=== PATIENT | female | born 1955 | race Caucasian/White ===

== ENCOUNTER 2016-04-19 04:48 | Emergency (ER) | payer OTHER ==
[~2016-04-19] VITALS: Ht 165.1 cm; Wt 75.0 kg
[~2016-04-19 04:48] MED LIST: ADV25050 INHALATION; ATOR10TA65 PO; CARI350T29 PO; CLOB15OI15 TOP; CLON0.5T4 PO; DIVA250T4 PO; DOCU250C58 PO; GABA300C16 PO; IBUP800T25 PO; KENC1 TOP; LEVO125T71 PO; METH10TA2 PO; NIT4 SL; OXYB5TAB7 PO; OXYC-183 PO; QUET50TA22 PO; RIVA20TA PO; VILA20TA PO
[2016-04-19 04:57] VITALS: Ht 165.1 cm; Wt 75.0 kg
[2016-04-19] MEDS ORDERED: SOD CHLORIDE 0.9% 1,000 ML IV STA (05:04)
[2016-04-19] MEDS ORDERED: ONDANSETRON 4 MG INJ IV STA ×2 (05:04→06:31)
[2016-04-19] MEDS ORDERED: DICLOFENAC SODIUM 37.5 MG/ML VIAL IV STA (05:04)
[2016-04-19 05:45] LABS: BASOPHILS % 0.2 % (0.0-2.0); HEMOGLOBIN 16.6 g/dl (12.0-16.0); LYMPHOCYTES # 1.2 10^3/ul (0.8-2.9); LYMPHOCYTES % 8.7 % (15.0-51.0); MEAN CORPUSCULAR HEMOGLOBIN 32.2 pg (29.0-33.0); MEAN CORPUSCULAR VOLUME 94.7 fl (82.0-101.0); MEAN PLATELET VOLUME 8.3 fl (7.4-10.4); MONOCYTE # 0.6 10^3/ul (0.3-0.9); MONOCYTES % 4.4 % (0.0-11.0); NEUTROPHILS % 86.7 % (39.0-77.0); PLATELET COUNT 290 10^3/UL (140-440); RED BLOOD COUNT 5.17 10^6/ul (4.20-5.40); RED CELL DISTRIBUTION WIDTH 14.6 % (11.5-14.5); UNCORRECTED WBC 13.9 10^3/ul (4.8-10.8); WHITE BLOOD COUNT 13.9 10^3/ul (4.8-10.8)
[2016-04-19 05:48] LABS: ALBUMIN 4.3 g/dl (3.3-4.9)
[2016-04-19 05:49] LABS: POTASSIUM 3.9 mmol/L (3.5-5.1)
[2016-04-19 05:50] LABS: CONDITION 1; LH ANALYZER COMMENTS 1
[2016-04-19 05:51] LABS: ALBUMIN/GLOBULIN RATIO 1.3; BILIRUBIN,INDIRECT 0.4 mg/dl (0-1.1); BILIRUBIN,TOTAL 0.4 mg/dl (0.2-1.3); CREATININE 0.73 mg/dl (0.44-1.00); TOTAL PROTEIN 7.6 g/dl (6.1-8.1)
[2016-04-19 05:52] LABS: CALCIUM 9.8 mg/dl (8.4-10.2)
[2016-04-19] MEDS ORDERED: HYDROmorphONE 1 MG/ML SYG IV STA (06:31)
[2016-04-19 07:06] LABS: ADD UMIC NO; URINE BILIRUBIN (Dip) NEGATIVE (NEGATIVE); URINE BLOOD (Dip) NEGATIVE (NEGATIVE); URINE COLOR LT. YELLOW (YELLOW); URINE GLUCOSE (Dip) NEGATIVE (NEGATIVE); URINE KETONES (Dip) 15 (NEGATIVE); URINE LEUKOCYTE ESTERASE (Dip) NEGATIVE (NEGATIVE); URINE NITRITE (Dip) NEGATIVE (NEGATIVE); URINE TOTAL PROTEIN (Dip) NEGATIVE (NEGATIVE); URINE UROBILINOGEN (Dip) 0.2 E.U./dL (0.1-1.0)
--- NOTE | 2016-04-19 07:16 | RADRPT ---
PROCEDURE: CT Abdomen and Pelvis without contrast. CLINICAL INDICATION: Right lower quadrant pain. TECHNIQUE: Routine axial tomographic images of the abdomen and pelvis were obtained from the domes the diaphragm to the symphysis pubis. The patient was scanned withoutoral or intravenous contrast. Coronal and sagittal reformatted images were obtained from the axial source images. Images were re viewed on a high-resolution PACS workstation. The total exam CTDI equals 20.77 mGy and the total exa m DLP equals 1209.85 mGy-cm. One or more of the following dose reduction techniques were used: Aut omated exposure control, adjustment of the mA and / or kV according to patient size, or use of itera tive reconstruction technique. COMPARISON: CT abdomen and pelvis dated 10/24/2015 FINDINGS: The visualized portions of the lung bases demonstrate scarring versus atelectasis of the right mid l tanvi. Evaluation of the intra-abdominal solid organs is limited on this noncontrast examination. The liver appears normal in size. There is no intra or extrahepatic biliary dilatation. The gallbl adder is unremarkable by CT criteria. The spleen, pancreas, and left adrenal gland are unremarkable . There is a 2 cm right adrenal gland nodule measuring 3 HU. The kidneys are symmetric in size. No renal, ureteral, or bladder calculi are identified. No perine phric inflammatory changes are identified. The urinary bladder is grossly unremarkable. An IVC kerry ter is in place. There is mild mucosal thickening of the distal esophagus. The bowel demonstrates normal course and caliber. There is no evidence of bowel obstruction. The appendix is unremarkable. The uterus and adnexa are grossly unremarkable. No intraperitoneal free fluid, free air or abscess is identified. The aorta is normal in caliber. No retroperitoneal, mesenteric, or inguinal lymphadenopathy is iden tified. The osseous structures demonstrate a moderate compression fracture of the superior endplate of the L 1 vertebral body and mild compression fracture of the superior endplate of the L3 vertebral body. T here are degenerative changes of the spine with multilevel facet arthropathy. There is intervertebr al disk space narrowing L5-S1 with discogenic endplate changes and vacuum disk phenomenon. There ar e numerous surgical clips along the anterior chest and abdominal wall. IMPRESSION: 1. Limited, noncontrast CT of the abdomen and pelvis. No acute intra-abdominal abnormality identifi ed. No significant interval change. 2. Mild mucosal thickening of the distal esophagus. 3. Right adrenal gland adenoma measuring 2 cm in diameter. 4. IVC filter in place. 5. Stable compression deformities of the L1 and L3 vertebral bodies. 6. Degenerative changes of the spine. 7. Numerous surgical clips along the anterior chest and abdominal wall. RPTAT: HH .Meg Cam MD, MD Date Time Electronically viewed and signed by .Meg Cam MD, on 04/19/2016 07:15 .G/
[2016-04-19 08:00] VITALS: BP 127/65; PULSE 72; RESP 19; TEMP 98.2
--- NOTE | 2016-04-19 08:56 | ERD ---
ER Documentation Chief Complaint Date/Time DATE: 04/19/16 TIME: 08:54 Chief Complaint ABD and back pain with n/v for 3 days HPI Patient is a 61-year-old female with chronic back pain who presents with abdominal pain and back pain. The patient was brought in by ambulance. She came from [facility]. The patient has right lower quadrant abdominal pain which is constant and sharp in nature. She says that she cannot pee and that she feels "dehydrated". She usually takes [place] but has not taken any today. Upon review of old medical records she has had multiple visits for pain complaints. She does have a primary doctor and says that she has a pain management appointment scheduled for 11 AM. ROS All systems reviewed and are negative except as per history of present illness. Medications Home Meds Active Scripts Ibuprofen* (Motrin*) 800 Mg Tab, 800 MG PO Q6H Y for PAIN AND OR ELEVATED TEMP, #30 TAB Prov:VALDEMAR PAGENIKITA DO 03/03/16 Reported Medications Gabapentin* (Gabapentin*) 300 Mg Capsule, 300 MG PO QHS, #30 CAP 03/03/16 Divalproex Sodium* (Divalproex Sodium*) 250 Mg Tablet.dr, 250 MG PO TID, #90 TAB 03/03/16 Clonazepam* (Clonazepam*) 0.5 Mg Tablet, 0.5 MG PO BID, TAB 03/03/16 Oxybutynin Chloride* (Ditropan*) 5 Mg Tab, 5 MG PO DAILY, TAB 03/03/16 Quetiapine Fumarate* (Quetiapine Fumarate*) 50 Mg Tablet, 50 MG PO BID, TAB 03/03/16 Nitroglycerin* (Nitrostat*) 0.4 Mg Tab.subl, 0.4 MG SL Q5MIN Y for CHEST PAIN, BOTTLE 03/03/16 Clobetasol Propionate* (Clobetasol Propionate*) 15 Gm Oint, 1 APPLIC TOP BID, # 1 TUB 03/03/16 Carisoprodol* (Carisoprodol*) 350 Mg Tablet, 350 MG PO TID Y for PRN, TAB 03/03/16 Docusate Sodium* (Colace*) 250 Mg Capsule, 250 MG PO BID, #60 CAP 03/03/16 Vilazodone Hcl (Viibryd) 20 Mg Tablet, 20 MG PO DAILY, TAB 03/03/16 Triamcinolone Acetonide* (Kenalog*) 0.1%-15GM Cr, 1 APPLIC TOP TID, #1 TUB 10/24/15 Rivaroxaban* (Xarelto*) 20 Mg Tablet, 20 MG PO WITH DINNER, TAB 10/24/15 Salmeterol Xinaf/Fluticasone* (Advair*) 250-50 Diskus Inhaler, 1 INH INHALATION BID, #1 INHALER 10/24/15 Methadone Hcl* (Methadone*) 10 Mg Tab, 20 MG PO BID, TAB 08/25/15 Oxycodone Hcl-Acetaminophen* (Oxycodone Hcl-Acetaminophen*) 10-325 Mg Tablet, 1 TAB PO Q6 Y for PAIN, TAB 04/09/15 Atorvastatin Calcium (Atorvastatin Calcium) 10 Mg Tablet, 10 MG PO QHS, #30 TAB 04/09/15 Levothyroxine Sodium* (Levoxyl*) 125 Mcg Tablet, 125 MCG PO BEFORE BREAKFAST, # 30 TAB 04/09/15 Allergies Allergies: Coded Allergies: morphine (Verified Allergy, Intermediate, "I DON'T REMEMBER", 03/03/16) Penicillins (Verified Allergy, Unknown, 03/03/16) prochlorperazine edisylate (Verified Allergy, Unknown, 03/03/16) prochlorperazine maleate (Verified Allergy, Unknown, 03/03/16) PMhx/Soc History of Surgery: Yes (DVT IVC FILTER 08/2015, BREST CA W/ BILAT MASTECTOMY, RT CARPAL TUNNEL SX.) Anesthesia Reaction: No Hx Neurological Disorder: No Hx Respiratory Disorders: Yes (PUL EMBOLISM) Hx Cardiac Disorders: No Hx Psychiatric Problems: Yes (BIPOLAR) Hx Miscellaneous Medical Probl: Yes (DVT IVC FILTER 08/2015, BREST CA W/ BILAT MASTECTOMY, RT CARPAL TUNNEL SX.) Hx Alcohol Use: No Hx Substance Use: No Hx Tobacco Use: Yes Smoking Status: Current every day smoker FmHx Family History: No diabetes Physical Exam Vitals Vital Signs Date Time Temp Pulse Resp B/P Pulse Ox O2 Delivery O2 Flow Rate FiO2 04/19/16 08:00 98.2 72 19 127/65 100 Room Air 04/19/16 06:02 99.5 94 18 155/100 100 Nasal Cannula 2.0 04/19/16 04:57 100.2 87 18 166/91 91 Physical Exam Const: Moderate distress secondary to pain Head: Atraumatic Eyes: Normal Conjunctiva ENT: Normal External Ears, Nose and Mouth. Neck: Full range of motion..~ No meningismus. Resp: Clear to auscultation bilaterally Cardio: Regular rate and rhythm, no murmurs Abd: Soft, diffuse tenderness to palpation without rebound or guarding Skin: No petechiae or rashes Back: No midline or flank tenderness Ext: No cyanosis, or edema Neur: Awake and alert Psych: Normal Mood and Affect Result Diagram: 04/19/1650904/19/1610 Results 24 hrs Laboratory Tests Test 04/19/16 05:10 04/19/16 06:43 Alanine Aminotransferase (ALT/SGPT) 24IU/L Albumin 4.3g/dl Albumin/Globulin Ratio 1.30 Alkaline Phosphatase 123IU/L Anion Gap 19 Aspartate Amino Transf (AST/SGOT) 25IU/L Basophils # 0.010^3/ul Basophils % 0.2% Blood Morphology Comment Blood Urea Nitrogen 13mg/dl Calcium Level 9.8mg/dl Carbon Dioxide Level 27mmol/L Chloride Level 100mmol/L Creatinine 0.73mg/dl Direct Bilirubin 0.00mg/dl Eosinophils # 0.010^3/ul Eosinophils % 0.0% Globulin 3.30g/dl Glucose Level 122mg/dl Hematocrit 49.0% Hemoglobin 16.6g/dl Indirect Bilirubin 0.4mg/dl Lipase 23U/L Lymphocytes # 1.210^3/ul Lymphocytes % 8.7% Mean Corpuscular Hemoglobin 32.2pg Mean Corpuscular Hemoglobin Concent 34.0g/dl Mean Corpuscular Volume 94.7fl Mean Platelet Volume 8.3fl Monocytes # 0.610^3/ul Monocytes % 4.4% Neutrophils # 12.010^3/ul Neutrophils % 86.7% Nucleated Red Blood Cells # 0.010^3/ul Nucleated Red Blood Cells % 0.0/100WBC Platelet Count 38924^3/UL Potassium Level 3.9mmol/L Red Blood Count 5.1710^6/ul Red Cell Distribution Width 14.6% Sodium Level 142mmol/L Total Bilirubin 0.4mg/dl Total Protein 7.6g/dl White Blood Count 13.910^3/ul Urine Bilirubin NEGATIVE Urine Clarity CLEAR Urine Color LT. YELLOW Urine Glucose NEGATIVE% Urine Hemoglobin NEGATIVE Urine Ketones 15 Urine Leukocyte Esterase NEGATIVE Urine Nitrite NEGATIVE Urine Specific [place] 1.015 Urine Total Protein NEGATIVE Urine Urobilinogen 0.2 E.U./dL Urine pH 7.0 Current Medications Medications (Trade) Dose Ordered Sig/Daniel Route PRN Reason Start Time Stop Time Status Last Admin Dose Admin Sodium Chloride (NS) 1,000 ml @ 1,000 mls/hr Q1H STAT IV 04/19/16 05:04 04/19/16 06:03 DC 04/19/16 05:21 Ondansetron HCl (Zofran Inj) 4 mg ONCE STAT IV 04/19/16 05:04 04/19/16 05:06 DC 04/19/16 05:21 Diclofenac Sodium (Dyloject) 37.5 mg ONCE STAT IV 04/19/16 05:04 04/19/16 05:06 DC 04/19/16 05:21 Hydromorphone HCl (Dilaudid) 1 mg ONCE STAT IV 04/19/16 06:31 04/19/16 06:32 DC 04/19/16 06:45 Ondansetron HCl (Zofran Inj) 4 mg ONCE STAT IV 04/19/16 06:31 04/19/16 06:33 DC 04/19/16 06:46 Procedures/MDM CT scan shows no acute process per radiology. Smoking Cessation Therapy: Pt. was lectured for greater than 3 minutes on the health risks of continued smoking and the benefits of cessation. Patient is a 61-year-old female presents with acute on chronic pain. At this point I see no signs of serious bacterial infection. I doubt appendicitis, cholecystitis, pancreatitis, or bowel obstruction. Laboratory studies show a mildly elevated white blood cell count but otherwise are normal. There is no sign of urine infection. The patient feels better after Dilaudid and Zofran. She has a pain management appointment scheduled for 11 AM and she wants to get to this appointment and I told her she should keep the appointment. She will be discharged in good return for any worsening symptoms. I do not believe she requires admission to the hospital at this time. She was given copies of her laboratory studies and CT scan result prior to discharge. Departure Diagnosis: Primary Impression: Abdominal pain Abdominal location: generalized Qualified Code: R10.84 - Generalized abdominal pain Additional Impression: Chronic back pain Back pain location: low back pain Back pain laterality: bilateral Sciatica presence: without sciatica Qualified Code: M54.5 - Chronic bilateral low back pain without sciatica Condition: Fair Patient Instructions: Abdominal Pain Referrals: ZULMA KRUEGER (PCP) Additional Instructions: Keep the appointment with your pain management doctor scheduled for today. LIT YUNG MD Apr 19, 2016 08:56
== END 2016-04-19 08:09 | disposition home or self-care (01) ==
LOC: E/R 04:48
DX: R10.84 Generalized abdominal pain (principal); M54.5 Low back pain; F17.210 Nicotine dependence, cigarettes, uncomplicated; E03.9 Hypothyroidism, unspecified; Z85.3 Personal history of malignant neoplasm of breast
CPT/HCPCS: 36415; 74176; 80053; 81003; 83690; 85025; 87086; 96374; 96375; 96376; 99285; J1170; J2405; J7030

== ENCOUNTER 2016-06-30 21:55 | Inpatient (IN) | payer OTHER ==
[~2016-06-30] VITALS: Ht 160 cm; Wt 88.7 kg
[2016-06-30] MEDS ORDERED: LORAZEPAM 2 MG INJ IV ONE ×4 (22:00→23:30)
[2016-06-30] MEDS ORDERED: MUPI15CR9 TOP (22:14)
[2016-06-30] MEDS ORDERED: ATOR40TA68 PO (22:16)
[2016-06-30] MEDS ORDERED: FLUT1AER INHALATION (22:18)
[2016-06-30] MEDS ORDERED: DULO20CA17 PO (22:19)
--- NOTE | 2016-06-30 22:20 | ERD ---
ER Documentation Chief Complaint Date/Time DATE: 06/30/16 TIME: 22:16 Chief Complaint HPI 61-year-old female who presents from assisted living facility after taking an extra dose of pain medication. The patient was found somnolent, pinpoint pupils. She was given Narcan, she is now more awake arousable and agitated. Based on senior living report to EMS it appears the patient got her regularly scheduled evening medications that include multiple pain medications and opiates. 1 of these does include methadone. The patient then asked for a second dose of pain medication. She was found to be sluggish and responded to Narcan as documented above. The patient is agitated, very limited history upon arrival. No reported fever, fall, trauma, recent altered mental status. ROS Agitated Medications Home Meds Active Scripts Ibuprofen* (Motrin*) 800 Mg Tab, 800 MG PO Q6H Y for PAIN AND OR ELEVATED TEMP, #30 TAB Prov:VALDEMAR PAGENIKITA LOCKE 03/03/16 Reported Medications Mirtazapine* (Mirtazapine*) 30 Mg Tablet, 30 MG PO HS, TAB 06/30/16 Levothyroxine Sodium* (Levothyroxine Sodium*) 137 Mcg Tablet, 137 MCG PO BEFORE BREAKFAST, #30 TAB 06/30/16 Lactulose* (Lactulose*) 10 Gm/15 Ml Solution, 2 TAB.SL PO QHS, ML 06/30/16 Quetiapine Fumarate* (Quetiapine Fumarate*) 400 Mg Tablet, 400 MG PO HS, TAB 06/30/16 Quetiapine Fumarate* (Quetiapine Fumarate*) 100 Mg Tablet, 100 MG PO QAM, TAB 06/30/16 Duloxetine Hcl* (Duloxetine Hcl*) 20 Mg Capsule.dr, 20 MG PO DAILY, #30 CAP 06/30/16 Fluticasone-Vilanterol (Breo Ellipta Inhaler) 100-25 Mcg/Actuation Aer.pow.ba, 1 PUFF INHALATION DAILY, #1 INHALER 06/30/16 Atorvastatin* (Atorvastatin*) 40 Mg Tablet, 40 MG PO DAILY, #30 TAB 06/30/16 Mupirocin Calcium* (Mupirocin*) 2% - 15 Gram Cream..g., 1 APPLIC TOP BID, #1 TUB 06/30/16 Gabapentin* (Gabapentin*) 300 Mg Capsule, 300 MG PO QHS, #30 CAP 03/03/16 Divalproex Sodium* (Divalproex Sodium*) 250 Mg Tablet.dr, 250 MG PO TID, #90 TAB 03/03/16 Clonazepam* (Clonazepam*) 0.5 Mg Tablet, 0.5 MG PO BID, TAB 03/03/16 Oxybutynin Chloride* (Ditropan*) 5 Mg Tab, 5 MG PO DAILY, TAB 03/03/16 Quetiapine Fumarate* (Quetiapine Fumarate*) 50 Mg Tablet, 50 MG PO BID for PRN, TAB 03/03/16 Nitroglycerin* (Nitrostat*) 0.4 Mg Tab.subl, 0.4 MG SL Q5MIN Y for CHEST PAIN, BOTTLE 03/03/16 Clobetasol Propionate* (Clobetasol Propionate*) 15 Gm Oint, 1 APPLIC TOP BID, # 1 TUB 03/03/16 Carisoprodol* (Carisoprodol*) 350 Mg Tablet, 350 MG PO TID Y for PRN, TAB 03/03/16 Docusate Sodium* (Colace*) 250 Mg Capsule, 250 MG PO BID, #60 CAP 03/03/16 Rivaroxaban* (Xarelto*) 20 Mg Tablet, 20 MG PO WITH MEALS, TAB 10/24/15 Methadone Hcl* (Methadone*) 10 Mg Tab, 20 MG PO BID, TAB 08/25/15 Oxycodone Hcl-Acetaminophen* (Oxycodone Hcl-Acetaminophen*) 10-325 Mg Tablet, 1 TAB PO Q6 Y for PAIN, TAB 04/09/15 Discontinued Reported Medications Vilazodone Hcl (Viibryd) 20 Mg Tablet, 20 MG PO DAILY, TAB 03/03/16 Triamcinolone Acetonide* (Kenalog*) 0.1%-15GM Cr, 1 APPLIC TOP TID, #1 TUB 10/24/15 Salmeterol Xinaf/Fluticasone* (Advair*) 250-50 Diskus Inhaler, 1 INH INHALATION BID, #1 INHALER 10/24/15 Atorvastatin Calcium (Atorvastatin Calcium) 10 Mg Tablet, 10 MG PO QHS, #30 TAB 04/09/15 Levothyroxine Sodium* (Levoxyl*) 125 Mcg Tablet, 125 MCG PO BEFORE BREAKFAST, # 30 TAB 04/09/15 Allergies Allergies: Coded Allergies: morphine (Verified Allergy, Intermediate, "I DON'T REMEMBER", 06/30/16) Penicillins (Verified Allergy, Unknown, 06/30/16) prochlorperazine edisylate (Verified Allergy, Unknown, 06/30/16) prochlorperazine maleate (Verified Allergy, Unknown, 06/30/16) PMhx/Soc History of Surgery: Yes (DVT IVC FILTER 08/2015, BREST CA W/ BILAT MASTECTOMY, RT CARPAL TUNNEL SX.) Anesthesia Reaction: No Hx Neurological Disorder: No Hx Respiratory Disorders: Yes (PUL EMBOLISM) Hx Cardiac Disorders: No Hx Psychiatric Problems: Yes (BIPOLAR) Hx Miscellaneous Medical Probl: Yes (DVT IVC FILTER 08/2015, BREST CA W/ BILAT MASTECTOMY, RT CARPAL TUNNEL SX.) Hx Alcohol Use: No Hx Substance Use: No Hx Tobacco Use: Yes FmHx Family History: No diabetes Physical Exam Vitals Vital Signs Date Time Temp Pulse Resp B/P Pulse Ox O2 Delivery O2 Flow Rate FiO2 07/01/16 00:00 97.9 104 23 124/60 89 06/30/16 23:45 129 23 173/85 99 06/30/16 23:30 132 26 165/107 99 06/30/16 23:15 138 26 204/182 99 06/30/16 23:00 98.3 135 27 190/165 98 06/30/16 22:02 98.3 139 33 97 Physical Exam General: Agitated, uncooperative Head: Normocephalic, atraumatic. Eyes: Pupils equally reactive, EOM intact ENT: Moist mucous membranes Neck: Supple, no lymphadenopathy Respiratory: Lungs clear bilaterally, no distress Cardiovascular: RRR, no murmurs, rubs, or gallops Abdominal: Soft, non-tender, non-distended, no peritoneal signs : Deferred MSK: No edema, no unilateral swelling, 5/5 strength Neurologic: Alert and oriented, moving all extremities, normal speech, no focal weakness, no cerebellar signs, hyperactive Skin: No rash Psych: Agitated mood Result Diagram: 06/30/16 1764 06/30/16 4355 Results 24 hrs Laboratory Tests Test 06/30/16 23:25 White Blood Count 11.410^3/ul Red Blood Count 4.4810^6/ul Hemoglobin 14.4g/dl Hematocrit 43.8% Mean Corpuscular Volume 97.8fl Mean Corpuscular Hemoglobin 32.1pg Mean Corpuscular Hemoglobin Concent 32.9g/dl Red Cell Distribution Width 13.7% Platelet Count 15769^3/UL Mean Platelet Volume 10.6fl Neutrophils % 61.9% Lymphocytes % 24.7% Monocytes % 10.0% Eosinophils % 2.1% Basophils % 0.5% Nucleated Red Blood Cells % 0.0/100WBC Neutrophils # 7.010^3/ul Lymphocytes # 2.810^3/ul Monocytes # 1.110^3/ul Eosinophils # 0.210^3/ul Basophils # 0.110^3/ul Nucleated Red Blood Cells # 0.010^3/ul Sodium Level 142mmol/L Potassium Level 3.9mmol/L Chloride Level 106mmol/L Carbon Dioxide Level 26mmol/L Anion Gap 14 Blood Urea Nitrogen 14mg/dl Creatinine 0.75mg/dl Glucose Level 115mg/dl Calcium Level 9.8mg/dl Current Medications Medications (Trade) Dose Ordered Sig/Daniel Route PRN Reason Start Time Stop Time Status Last Admin Dose Admin Lorazepam (Ativan) 1 mg ONCE ONCE IV 06/30/16 22:00 06/30/16 22:01 DC 06/30/16 22:06 Clonidine (Catapres) 0.1 mg ONCE ONCE PO 06/30/16 22:30 06/30/16 22:31 DC Lorazepam (Ativan) 1 mg ONCE ONCE IV 06/30/16 22:30 06/30/16 22:31 DC 06/30/16 22:26 Lorazepam (Ativan) 1 mg ONCE ONCE IV 06/30/16 23:00 06/30/16 23:01 DC 06/30/16 22:41 Lorazepam (Ativan) 1 mg ONCE ONCE IV 06/30/16 23:30 06/30/16 23:31 DC 06/30/16 23:30 Procedures/MDM Labs: No acute process MEDICAL DECISION MAKING: The patient presents with withdrawal syndrome secondary to likely Narcan administration in the setting of chronic opioid use. The patient most likely took an extra dose of her pain medication. The patient was found to be altered and received Narcan appropriately. The patient is now agitated. Her presentation is most consistent with likely opioid overdose now with withdrawal syndrome that is mild. The patient has no signs or symptoms concerning for alternative cause of altered mental status such as trauma, infection, intracranial hemorrhage. I do not believe the laboratory testing or diagnostic imaging is necessary at this point. The patient will be observed for a period of time given that she does take methadone but she did not receive an extra dose of methadone based on senior living report. ER COURSE: The patient was given 1 mg of Ativan. The patient did not have any response to this. She has not required a total of 4 mg of Ativan, clonidine for her opiate withdrawal. The patient is also required restraints given danger to herself that she is pulling out lines and pulling on equipment in the room. I will continue with benzodiazepine dosing to manage this patient's opiate withdrawal syndrome. The patient will likely require inpatient hospitalization for further management and close observation. Restrains: Indication: Medical given agitation Location: 4 point restraints to bilateral upper and lower extremities The patient was given verbal warnings that if the behavior continued the patient would require physical and/or chemical restraints. Despite verbal warnings the behavior continued and restraints were applied. The patient had a bedside reevaluation within 50 minutes of placement of restraints. Patient remained stable. I kept the patient and/or family informed of laboratory and diagnostic imaging results throughout the emergency room course. DISPOSITION PLAN: Admit to ICU given significant nursing care requirements and opiate withdrawal CONSULTATION: Accepting care team and consultations: I discussed the current laboratory data, diagnostic imaging and emergency care provided. Admitting team: Dr. Campuzano Admitting team indication: Insurance directed Departure Diagnosis: Primary Impression: Opioid overdose Encounter type: initial encounter Injury intent: accidental or unintentional Qualified Code: T40.2X1A - Opioid overdose, accidental or unintentional, initial encounter Additional Impression: Opioid dependence with withdrawal Condition: Stable ELSYE HOFFMANN MD Jun 30, 2016 22:20
[2016-06-30] MEDS ORDERED: QUET100T32 PO (22:21)
[2016-06-30] MEDS ORDERED: QUET400T11 PO (22:21)
[2016-06-30] MEDS ORDERED: LACT10SO5 PO (22:22)
[2016-06-30] MEDS ORDERED: LEVO137T3 PO (22:22)
[2016-06-30] MEDS ORDERED: MIRT30TA5 PO (22:23)
[2016-06-30 23:40] LABS: ADD SCAN DIFF NO; BASOPHIL # 0.1 10^3/ul (0.0-0.1); BASOPHILS % 0.5 % (0.0-2.0); EOSINOPHILS # 0.2 10^3/ul (0.0-0.5); EOSINOPHILS % 2.1 % (0.0-7.0); HEMATOCRIT 43.8 % (37.0-47.0); HEMOGLOBIN 14.4 g/dl (12.0-16.0); LYMPHOCYTES # 2.8 10^3/ul (0.8-2.9); LYMPHOCYTES % 24.7 % (15.0-51.0); MEAN CORPUSCULAR HEMOGLOBIN 32.1 pg (29.0-33.0); MEAN CORPUSCULAR HGB CONC 32.9 g/dl (32.0-37.0); MEAN CORPUSCULAR VOLUME 97.8 fl (82.0-101.0); MEAN PLATELET VOLUME 10.6 fl (7.4-10.4); MONOCYTE # 1.1 10^3/ul (0.3-0.9); NEUTROPHILS % 61.9 % (39.0-77.0); PLATELET COUNT 237 10^3/UL (140-415); RED BLOOD COUNT 4.48 10^6/ul (4.20-5.40); RED CELL DISTRIBUTION WIDTH 13.7 % (11.5-14.5); WHITE BLOOD COUNT 11.4 10^3/ul (4.8-10.8)
[2016-07-01] VITALS (18 sets, daily range): BP systolic 90–141; BP diastolic 48–80; PULSE 64–135; RESP 12–17; TEMP 97.6; Ht 160 cm; Wt 88.7 kg
[2016-07-01 00:02] LABS: CALCIUM 9.8 mg/dl (8.4-10.2); CREATININE 0.75 mg/dl (0.44-1.00); POTASSIUM 3.9 mmol/L (3.5-5.1)
[2016-07-01] MEDS ORDERED: ALBUTEROL/IPRATROPIUM (NEB) 3 ML AMP NEB SCH (01:00)
[2016-07-01] MEDS: DEXTROSE 5%-0.45% NACL 1,000 ML IV SCH ×3 (03:03→13:29)
--- NOTE | 2016-07-01 05:49 | HP ---
Date/Time of Note Date/Time of Note DATE: 07/01/16 TIME: 05:35 Assessment/Plan VTE Prophylaxis VTE Prophylaxis Intervention: SCD's Lines/Catheters IV [facility]ter [facility] Peripheral IV Urinary Cath still in place: Yes Assessment/Plan Assessment/Plan IMPRESSION 1. Benzo Overdose and withdrawal 2. Hx of Breast Ca s/p mastectomy 3. Anxiety, depression. 4. Posttraumatic stress disorder. 5. History of DVT and pulmonary embolism. 6. Possible hx of chronic obstructive pulmonary disease. 7. Hypothyroidism. 8. Dyslipidemia. 9. Mild Leukocytosis PLAN Admit to ICU Supportive care IV fluid Keep NPO. Resume home meds with adjustment when pt appropriate HPI/ROS Admit Date/Time Admit Date/Time Jul 01, 2016 at 00:32 Hx of Present Illness This is a 61-year-old female with a past medical history of pulmonary embolism diagnosed in 08/2015, lower extremity deep venous thrombosis also diagnosed at the same time, history of tobacco abuse, breast cancer status post bilateral mastectomies, constipation, chronic pain syndrome, chronic benzodiazepine dependence, chronic opioid dependence, possible post-traumatic stress disorder, bipolar disorder, hypothyroidism, Dyslipidemia, questionable COPD, prediabetes who was brought to ER for Benzo OD and withdrawal. [facility], where patient resides states that pt received regularly scheduled PM meds at 1900: Seroquel 400mg, Percocet 10/325, Remeron, Klonopin, and also received PRN seroquel 50mg at 2000. Upon EMS arrival, pt shallow respirations, pinpoint pupils, nonresponsive, given narcan and became wide awake, frequent constant movements and agitation displaying probable withdrawal symptoms. History as a result has been taken from chart review and ER. His vitals have been stable and labs show WBC of 11, otherwise CBC and BMP were WNL. . PMH/Family/Social Past Medical History Breast cancer s/p mastectomy Anxiety, depression. Posttraumatic stress disorder. History of DVT and pulmonary embolism. Possible chronic obstructive pulmonary disease. Chronic hypothyroidism. Chronic dyslipidemia. Past Surgical History Past Surgical Hx: other (mastectomy) Social History Alcohol Use: other (unknown) Smoking Status: Unknown if ever smoked Drug Use: other (benzo abuse) Exam/Review of Systems Vital Signs Vitals Vital Signs Date Time Temp Pulse Resp B/P Pulse Ox O2 Delivery O2 Flow Rate FiO2 07/01/16 03:55 Nasal Cannula 3.0 07/01/16 03:05 100 27 07/01/16 03:00 97.8 84 13 141/70 Intake and Output 06/30/16 06/30/16 07/01/16 15:00 23:00 07:00 Intake Total 100 ml Output Total 500 ml Balance -400 ml Exam Constitutional: other (restless and agitated) Head: atraumatic, normocephalic Respiratory: clear to auscultation Cardiovascular: nl pulses, regular rate and rhythm Gastrointestinal: other (+ bowel sound, non-distended), soft Extremities: normal pulses Labs Result Diagram: 06/30/16232406/30/162324 Medications Medications Current Medications Dextrose/Sodium Chloride (D5-1/2ns) 1,000 ml @ 100 mls/hr Q10H IV Last administered on 07/01/16 03:03; Admin Dose 100 MLS/HR; Start 07/01/16 at 00:25 Ondansetron HCl (Zofran Inj) 4 mg Q6H PRN IV NAUSEA AND/OR VOMITING; Start at 00:30 Famotidine (Pepcid Iv) 20 mg Q12 IV ; Start 07/01/16 at 09:00 ISIDRO YEUNG MD Jul 01, 2016 05:46
[2016-07-01] MEDS: ALBUTEROL/IPRATROPIUM (NEB) 3 ML AMP NEB SCH ×4 (05:53→21:00)
[2016-07-01 06:07] LABS: ADD SCAN DIFF NO
[2016-07-01 06:18] LABS: BASOPHIL # 0.1 10^3/ul (0.0-0.1); BASOPHILS % 0.5 % (0.0-2.0); EOSINOPHILS # 0.1 10^3/ul (0.0-0.5); EOSINOPHILS % 0.8 % (0.0-7.0); HEMATOCRIT 42.6 % (37.0-47.0); HEMOGLOBIN 13.9 g/dl (12.0-16.0); LYMPHOCYTES # 2.8 10^3/ul (0.8-2.9); LYMPHOCYTES % 23.2 % (15.0-51.0); MEAN CORPUSCULAR HEMOGLOBIN 32.6 pg (29.0-33.0); MEAN CORPUSCULAR HGB CONC 32.6 g/dl (32.0-37.0); MEAN CORPUSCULAR VOLUME 99.8 fl (82.0-101.0); MEAN PLATELET VOLUME 10.6 fl (7.4-10.4); MONOCYTE # 0.9 10^3/ul (0.3-0.9); MONOCYTES % 7.6 % (0.0-11.0); NEUTROPHIL # 8.1 10^3/ul (1.6-7.5); NEUTROPHILS % 67.3 % (39.0-77.0); PLATELET COUNT 228 10^3/UL (140-415); RED BLOOD COUNT 4.27 10^6/ul (4.20-5.40); RED CELL DISTRIBUTION WIDTH 13.7 % (11.5-14.5)
[2016-07-01 06:37] LABS: ALBUMIN 3.4 g/dl (3.3-4.9); ALBUMIN/GLOBULIN RATIO 1.3; CALCIUM 9.2 mg/dl (8.4-10.2); CREATININE 0.6 mg/dl (0.44-1.00); POTASSIUM 4.3 mmol/L (3.5-5.1)
[2016-07-01] MEDS: FAMOTIDINE 20 MG INJ IV SCH ×2 (09:44→21:59)
[2016-07-01 11:52] LABS: AADO2 Arterial 29.2 mmHg (7.0-24.0); Allen Test ACCEPTAB; Arterial Base Excess 1.4 mmol/L (-3.0-3); Arterial COHb 1.3 % (0.0-3.0); Arterial Fraction of Oxyhgb 90.6 % (93.0-99.0); Arterial HCO3 27.3 mmol/L (22.0-26.0); Arterial MetHb 0.3 % (0.0-1.5); Arterial Total Hemglobin 14.1 g/dl (12.0-18.0); MODE ROOM AIR
[2016-07-01] MEDS ORDERED: PANTOPRAZOLE 40 MG INJ IV SCH (14:30)
[2016-07-01 14:45] LABS: CHOL/HDL RATIO 4.3 RATIO
[2016-07-01] MEDS: DEXTROSE 5%-0.9% NACL 1,000 ML IV SCH (15:00)
[2016-07-01] MEDS ORDERED: PENDING SANTYL ORDER FOR WOUND CARE XX PRN (17:30)
[2016-07-02] MEDS: KETOROLAC 30 MG INJ IV PRN ×4 (00:08→22:38)
[2016-07-02] MEDS: ALBUTEROL/IPRATROPIUM (NEB) 3 ML AMP NEB SCH ×6 (01:36→20:27)
[2016-07-02] MEDS: DEXTROSE 5%-0.9% NACL 1,000 ML IV SCH ×2 (05:24→17:35)
[2016-07-02] MEDS: ONDANSETRON 4 MG INJ IV PRN ×2 (05:59→11:31)
[2016-07-02 08:00] VITALS: BP 151/87; PULSE 94; RESP 16
[2016-07-02] MEDS: FAMOTIDINE 20 MG INJ IV SCH ×2 (08:32→22:36)
[2016-07-02 08:48] LABS: ADD SCAN DIFF NO
[2016-07-02 08:52] LABS: BASOPHIL # 0.1 10^3/ul (0.0-0.1); BASOPHILS % 0.7 % (0.0-2.0); EOSINOPHILS # 0.1 10^3/ul (0.0-0.5); EOSINOPHILS % 1.6 % (0.0-7.0); HEMATOCRIT 40.8 % (37.0-47.0); HEMOGLOBIN 13.8 g/dl (12.0-16.0); MEAN CORPUSCULAR HEMOGLOBIN 33.1 pg (29.0-33.0); MEAN CORPUSCULAR HGB CONC 33.8 g/dl (32.0-37.0); MEAN CORPUSCULAR VOLUME 97.8 fl (82.0-101.0); MEAN PLATELET VOLUME 10.8 fl (7.4-10.4); MONOCYTE # 0.6 10^3/ul (0.3-0.9); MONOCYTES % 7.4 % (0.0-11.0); NEUTROPHIL # 4.7 10^3/ul (1.6-7.5); PLATELET COUNT 235 10^3/UL (140-415); RED BLOOD COUNT 4.17 10^6/ul (4.20-5.40); RED CELL DISTRIBUTION WIDTH 13.6 % (11.5-14.5); WHITE BLOOD COUNT 7.5 10^3/ul (4.8-10.8)
[2016-07-02 09:12] LABS: CREATININE 0.68 mg/dl (0.44-1.00); MAGNESIUM 1.9 mg/dl (1.7-2.5); PHOSPHORUS 2.8 mg/dl (2.5-4.9); POTASSIUM 3.6 mmol/L (3.5-5.1)
[2016-07-02 16:44] LABS: THYROID STIMULATING HORMONE 8.44 MIU/L (0.465-4.680)
[2016-07-02] MEDS: RIVAROXABAN 20 MG TABLET PO SCH (17:37)
[2016-07-02 19:32] VITALS: BP 137/81; RESP 18
[2016-07-03] MEDS: ALBUTEROL/IPRATROPIUM (NEB) 3 ML AMP NEB SCH ×5 (01:00→16:51)
[2016-07-03] MEDS: DEXTROSE 5%-0.9% NACL 1,000 ML IV SCH (05:55)
--- NOTE | 2016-07-03 06:47 | PN ---
DATE: 07/02/2016 SUBJECTIVE: The patient more alert and awake now, asking when she can go home. Gets emotionally la bile at times but otherwise alert. Denies pain. OBJECTIVE VITAL SIGNS: Stable. GENERAL: The patient is lying in bed, answering questions appropriately, alert and oriented x3, in mild distress but answering questions. HEENT: Pupils equal, round, react to light. Extraocular muscles intact. NECK: Supple, no thyromegaly. LUNGS: Clear to auscultation bilaterally. CARDIOVASCULAR: S1, S2 heard. No rubs or gallops. ABDOMEN: Soft, nontender, nondistended. Normal bowel sounds. No rebound or guarding. MUSCULOSKELETAL: No lower extremity edema bilaterally. NEUROLOGIC: No focal deficits. LABORATORY DATA: CBC is normal. Basic metabolic panel is normal. ASSESSMENT AND PLAN: A 61-year-old female coming in with signs of possible opiate versus benzo over dose versus polypharmacy with prior history of anxiety, depression, post-traumatic stress disorder, bipolar disorder, and pulmonary embolism. 1. Altered mental status, again secondary to possible polypharmacy, opiate overdose, or benzo overd ose. Again, continue to hold those medicines for now as she detoxes. She is more alert and awake. Continue IV fluids. We will get pain management doctor as well to help short out her medication li st. 2. Anxiety, depression. Again, just monitor her for now. If she gets agitated, we will consider A tivan p.r.n. 3. disorder. See #2. 4. History of pulmonary embolism. Continue Xarelto. 5. Hypothyroidism. Continue to monitor for now. Consider checking a thyroid panel. 6. High cholesterol. Again, follow up lipid panel. 7. Possible COPD. DuoNeb p.r.n. 8. Gastrointestinal prophylaxis. H2 sarai. 9. Deep venous thrombosis prophylaxis. Sequential compression devices. Dictated By: PETER LEE Conf#: [id number] DID#: [id number]
[2016-07-03] MEDS ORDERED: LEVOTHYROXINE 137 MCG TAB PO SCH (07:00)
[2016-07-03] MEDS: KETOROLAC 30 MG INJ IV PRN ×2 (07:22→13:25)
[2016-07-03] MEDS: ONDANSETRON 4 MG INJ IV PRN (07:42)
[2016-07-03 08:16] LABS: ADD SCAN DIFF NO
[2016-07-03 08:19] LABS: BASOPHIL # 0.1 10^3/ul (0.0-0.1); BASOPHILS % 0.7 % (0.0-2.0); EOSINOPHILS # 0.2 10^3/ul (0.0-0.5); EOSINOPHILS % 1.8 % (0.0-7.0); HEMOGLOBIN 14.9 g/dl (12.0-16.0); LYMPHOCYTES % 18.6 % (15.0-51.0); MEAN CORPUSCULAR HEMOGLOBIN 32.6 pg (29.0-33.0); MEAN CORPUSCULAR HGB CONC 33.1 g/dl (32.0-37.0); MEAN CORPUSCULAR VOLUME 98.5 fl (82.0-101.0); MEAN PLATELET VOLUME 10.5 fl (7.4-10.4); MONOCYTE # 0.7 10^3/ul (0.3-0.9); MONOCYTES % 6.4 % (0.0-11.0); NEUTROPHIL # 7.8 10^3/ul (1.6-7.5); NEUTROPHILS % 72.1 % (39.0-77.0); PLATELET COUNT 252 10^3/UL (140-415); RED BLOOD COUNT 4.57 10^6/ul (4.20-5.40); RED CELL DISTRIBUTION WIDTH 13.7 % (11.5-14.5); WHITE BLOOD COUNT 10.8 10^3/ul (4.8-10.8)
[2016-07-03 08:49] LABS: POTASSIUM 3.8 mmol/L (3.5-5.1)
[2016-07-03 08:52] LABS: CREATININE 0.65 mg/dl (0.44-1.00)
[2016-07-03 08:53] LABS: CALCIUM 9.3 mg/dl (8.4-10.2)
[2016-07-03] MEDS ORDERED: NON-FORMULARY/PATIENT OWN MED (Fluticasone-Vilanterol (Breo Ellipta Inhaler) 1 PUFF) INHALATION SCH (09:00)
[2016-07-03] MEDS ORDERED: ATORVASTATIN 40 MG TAB PO SCH (09:00)
[2016-07-03] MEDS: FAMOTIDINE 20 MG INJ IV SCH (09:48)
[2016-07-03] MEDS ORDERED: ACETAMINOPHEN 325 MG TAB PO PRN (11:00)
[2016-07-03] MEDS ORDERED: HYDROmorphONE 2 MG TAB PO PRN (13:00)
--- NOTE | 2016-07-03 14:17 | PDOCDIS ---
Discharge Instructions CONDITION Patient Condition: Stable HOME CARE INSTRUCTIONS: Special Diet: Mechanical Soft ACTIVITY: Activity Restrictions: Slowly Increase Activity FOLLOW UP/APPOINTMENTS Appointments Please take your medications, and see your doctor in the clinic in 1 week. PETER FUNEZ Jul 03, 2016 14:17
[2016-07-03] MEDS ORDERED: QUET25TA33 NGT (14:20)
[2016-07-03] MEDS ORDERED: HYDR2TAB15 PO (14:20)
--- NOTE | 2016-07-03 15:07 | DS ---
DATE OF ADMISSION: 07/01/2016 DATE OF DISCHARGE: 07/03/2016 HOSPITAL COURSE: This 61-year-old female originally admitted on 07/01/2014 being discharged home on 07/03/2016. The patient came in with signs of either benzodiazepine overdose of opiate overdose an d withdrawal. She was admitted initially to the ICU, spent 24 hours there. She has a prior history of anxiety, depression and posttraumatic stress disorder. It was thought also to be due to polypha rmacy as she is on multiple antidepressants and antipsychotics at home. All those medicines were he ld. She was able to detox, was given with IV fluids. She became more awake and alert. She was see n by pain management team who recommended cutting down a lot of her outpatient medicines and we deci ded on a regimen of low-dose Seroquel and Dilaudid for medications as well. The patient was able to ambulate and tolerate a p.o. diet. She worked with physical therapy and speech therapy as well. R ecommendations were to go home with a front-wheel walker, so we are going to try to set that up for her. She will be discharged home today in improved condition. DISCHARGE MEDICATIONS: She will go home with the following medications: 1. Dilaudid 2 mg p.o. q.6h. p.r.n. 2. Seroquel 25 mg p.o. b.i.d. 3. She will continue atorvastatin 40 mg daily. 4. Clobetasol apply topically b.i.d. 5. Depakote 250 mg t.i.d. 6. Colace 250 mg b.i.d. 7. Breo Ellipta inhaler 100/25 one puff inhaled daily. 8. Lactulose daily. 9. Levothyroxine 137 mcg before breakfast. 10. Mupirocin apply topically b.i.d. 11. Nitroglycerin p.r.n. 12. Ditropan 5 mg daily. 13. Xarelto 20 mg with dinner. FOLLOWUP: She is to followup with primary care doctor in clinic and pain management doctor in [facility] in the next 1 to 2 weeks. FINAL DIAGNOSES: 1. Altered mental status secondary to possible polypharmacy versus opiate overdose versus possible benzodiazepine overdose, now improved. 2. History of anxiety and depression, now on Seroquel. 3. History of posttraumatic stress disorder, now on Seroquel. 4. Chronic pain, on p.o. Dilaudid. 5. History of pulmonary embolism, on Xarelto. 6. Hypothyroidism. 7. High cholesterol. 8. Chronic obstructive pulmonary disease. Time spent discharging patient 40 minutes. Dictated By: PETER LEE Conf#: [id number] DID#: [id number]
[2016-07-03] MEDS: RIVAROXABAN 20 MG TABLET PO SCH (17:03)
[2016-07-03] MEDS ORDERED: QUETIAPINE 25 MG TAB NGT SCH (21:00)
== END 2016-07-03 17:35 | disposition home or self-care (01) | DRG 918 ==
LOC: E/R 21:55 → ICU 07-01 00:32 → PP2 07-01 17:21
PROVIDERS: ADMIT Internal Medicine; ATTEND Internal Medicine
DX: T42.4X1A Poisoning by benzodiazepines, accidental (unintentional), initial encounter (principal); T40.601A Poisoning by unspecified narcotics, accidental (unintentional), initial encounter; J44.9 Chronic obstructive pulmonary disease, unspecified; F32.9 Major depressive disorder, single episode, unspecified; R41.82 Altered mental status, unspecified; G89.29 Other chronic pain; E03.9 Hypothyroidism, unspecified; E78.00 Pure hypercholesterolemia, unspecified; E78.5 Hyperlipidemia, unspecified; F41.9 Anxiety disorder, unspecified; F43.12 Post-traumatic stress disorder, chronic; Z86.711 Personal history of pulmonary embolism; Y92.89 Other specified places as the place of occurrence of the external cause; Z85.3 Personal history of malignant neoplasm of breast
CPT/HCPCS: 36415; 36600; 80048; 80053; 80061; 82803; 83036; 83735; 84100; 84439; 84443; 85025; 87081; 92610; 94640; 94664; 96374; 96376; 97162; J1170; J1885; J2060; J2405; J7042

== ENCOUNTER 2016-07-17 17:59 | Emergency (ER) | payer OTHER ==
[~2016-07-17] VITALS: Ht 162.6 cm; Wt 86.4 kg
[~2016-07-17 17:59] MED LIST changes: -ADV25050 INHALATION; -ATOR10TA65 PO; +ATOR40TA68 PO; -CARI350T29 PO; -CLON0.5T4 PO; +FLUT1AER INHALATION; -GABA300C16 PO; +HYDR2TAB15 PO; -IBUP800T25 PO; -KENC1 TOP; +LACT10SO5 PO; -LEVO125T71 PO; +LEVO137T3 PO; -METH10TA2 PO; +MUPI15CR9 TOP; -OXYC-183 PO; +QUET25TA33 NGT; -QUET50TA22 PO; -VILA20TA PO
[2016-07-17] MEDS ORDERED: SOD CHLORIDE 0.9% 1,000 ML IV STA (18:37)
[2016-07-17 19:15] VITALS: RESP 18; TEMP 98.5; Ht 162.6 cm; Wt 86.4 kg
--- NOTE | 2016-07-17 19:17 | RADRPT ---
PROCEDURE: CT Abdomen and Pelvis without contrast. CLINICAL INDICATION: Abdominal pain TECHNIQUE: CT of the abdomen and pelvis was performed on a multi-detector scanner without IV contr ast. Coronal and sagittal images were reformatted from the axial data set. One or more of the foll owing dose reduction techniques were used: automated exposure control, adjustment of the mA and/or kV according to patient size, use of iterative reconstruction technique. CTDI = 19.29 mGy. DLP = 10 51.45 mGy-cm. COMPARISON: CT, 04/19/2016 FINDINGS: CT abdomen: The lung bases are clear. The heart size is normal, without pericardial effusion. Liver, gallbladd er, biliary tree, pancreas, spleen, left adrenal gland and bilateral kidneys are unremarkable. No u rolithiasis or obstructive uropathy is identified. Benign right adrenal adenoma is again noted, sta ble over time. The stomach is partially collapsed, but appears grossly unremarkable. The aorta is of normal caliber. Aortic vascular calcifications are present. There is no retroperit zuleta lymphadenopathy. The dany hepatis region is clear. IVC filter is in place. Multiple anterio r abdominal wall surgical clips are identified. CT pelvis: No bowel obstruction, free intraperitoneal air or abscess is identified. The appendix is well visua lized and normal. There is no diverticulosis, diverticulitis or colitis. Urinary bladder is grossl y unremarkable. The patient is status post partial hysterectomy. No pelvic mass, free fluid or lym phadenopathy is identified. The surrounding osseous structures are remarkable for degenerative spondylosis of the spine. No ost eolytic or osteoblastic lesion is detected. There are chronic mild compression deformities of L1 and L3. IMPRESSION: 1. Aortoiliac atherosclerotic calcifications are present. 2. The patient is status post IVC filter placement and partial hysterectomy. 3. No mass, lymphadenopathy, or focal acute inflammatory process is identified. RPTAT: QQ .Yaakov Villavicencio MD, MD Date Time Electronically viewed and signed by .Yaakov Villavicencio MD, MD on 07/17/2016 19:16 .R/
[2016-07-17 19:27] LABS: ADD SCAN DIFF NO
[2016-07-17 19:30] LABS: BASOPHILS % 0.4 % (0.0-2.0); EOSINOPHILS # 0.1 10^3/ul (0.0-0.5); HEMATOCRIT 39.2 % (37.0-47.0); HEMOGLOBIN 13.2 g/dl (12.0-16.0); MEAN CORPUSCULAR HEMOGLOBIN 32.8 pg (29.0-33.0); MEAN CORPUSCULAR HGB CONC 33.7 g/dl (32.0-37.0); MEAN CORPUSCULAR VOLUME 97.5 fl (82.0-101.0); MEAN PLATELET VOLUME 10.1 fl (7.4-10.4); NEUTROPHILS % 71.1 % (39.0-77.0); PLATELET COUNT 376 10^3/UL (140-415); RED BLOOD COUNT 4.02 10^6/ul (4.20-5.40); RED CELL DISTRIBUTION WIDTH 13.4 % (11.5-14.5); WHITE BLOOD COUNT 11.3 10^3/ul (4.8-10.8)
[2016-07-17 19:46] LABS: ALBUMIN 3.7 g/dl (3.3-4.9); ALBUMIN/GLOBULIN RATIO 1.23; BILIRUBIN,INDIRECT 0.1 mg/dl (0-1.1); BILIRUBIN,TOTAL 0.1 mg/dl (0.2-1.3); CALCIUM 9.7 mg/dl (8.4-10.2); CREATININE 0.68 mg/dl (0.44-1.00); POTASSIUM 3.7 mmol/L (3.5-5.1); TOTAL PROTEIN 6.7 g/dl (6.1-8.1)
[2016-07-17 20:20] LABS: ADD UMIC YES; URINE BILIRUBIN (Dip) NEGATIVE (NEGATIVE); URINE BLOOD (Dip) 3+ (NEGATIVE); URINE COLOR LT. RED (YELLOW); URINE GLUCOSE (Dip) NEGATIVE (NEGATIVE); URINE KETONES (Dip) NEGATIVE (NEGATIVE); URINE LEUKOCYTE ESTERASE (Dip) 2+ (NEGATIVE); URINE NITRITE (Dip) NEGATIVE (NEGATIVE); URINE TOTAL PROTEIN (Dip) 2+ (NEGATIVE); URINE UROBILINOGEN (Dip) 0.2 E.U./dL (0.1-1.0)
[2016-07-17 20:37] LABS: URINE RBCS >200 /HPF (0)
[2016-07-17 20:38] LABS: SQUAMOUS EPITHELIAL CELL,UR FEW
[2016-07-17 20:39] LABS: BACTERIA,URINE FEW
[2016-07-17] MEDS ORDERED: LEVO500T72 PO (20:41)
[2016-07-17] MEDS ORDERED: IBUP-1542 PO (20:41)
[2016-07-17] MEDS ORDERED: LEVOFLOXACIN 750MG/D5W (PMX) 150 ML IVPB ONE (21:00)
[2016-07-17 22:36] VITALS: BP 113/73; PULSE 76
--- NOTE | 2016-07-18 01:12 | ERD ---
ER Documentation Chief Complaint Date/Time DATE: 07/18/16 TIME: 01:09 Chief Complaint HPI 61-year-old woman complains of 1 day of hematuria. She denies fevers or chills , no back pain, no chest pain or shortness of breath, no loss of consciousness. Patient transported here by EMS without further complications. ROS All systems reviewed and are negative except as per history of present illness. Medications Home Meds Active Scripts Ibuprofen* (Ibuprofen*) 600 Mg Tablet, 600 MG PO Q8 for PAIN AND/OR INFLAMMATION , #30 TAB Prov:STEVE JONES MD 07/17/16 Levofloxacin* (Levaquin*) 500 Mg Tablet, 500 MG PO DAILY for 5 Days, TAB Prov:STEVE JONES MD 07/17/16 Quetiapine Fumarate* (Quetiapine Fumarate*) 25 Mg Tablet, 25 MG NGT BID, #60 TAB 2 Refills Prov:PETER FUNEZ S. 07/03/16 Hydromorphone Hcl* (Dilaudid*) 2 Mg Tablet, 2 MG PO Q6H Y for PAIN LEVEL 4-7, # 30 TAB Prov:PETER FUNEZ S. 07/03/16 Reported Medications Levothyroxine Sodium* (Levothyroxine Sodium*) 137 Mcg Tablet, 137 MCG PO BEFORE BREAKFAST, #30 TAB 06/30/16 Lactulose* (Lactulose*) 10 Gm/15 Ml Solution, 2 TAB.SL PO QHS, ML 06/30/16 Fluticasone-Vilanterol (Breo Ellipta Inhaler) 100-25 Mcg/Actuation Aer.pow.ba, 1 PUFF INHALATION DAILY, #1 INHALER 06/30/16 Atorvastatin* (Atorvastatin*) 40 Mg Tablet, 40 MG PO DAILY, #30 TAB 06/30/16 Mupirocin Calcium* (Mupirocin*) 2% - 15 Gram Cream..g., 1 APPLIC TOP BID, #1 TUB 06/30/16 Divalproex Sodium* (Divalproex Sodium*) 250 Mg Tablet.dr, 250 MG PO TID, #90 TAB 03/03/16 Oxybutynin Chloride* (Ditropan*) 5 Mg Tab, 5 MG PO DAILY, TAB 03/03/16 Nitroglycerin* (Nitrostat*) 0.4 Mg Tab.subl, 0.4 MG SL Q5MIN Y for CHEST PAIN, BOTTLE 03/03/16 Clobetasol Propionate* (Clobetasol Propionate*) 15 Gm Oint, 1 APPLIC TOP BID, # 1 TUB 03/03/16 Docusate Sodium* (Colace*) 250 Mg Capsule, 250 MG PO BID, #60 CAP 03/03/16 Rivaroxaban* (Xarelto*) 20 Mg Tablet, 20 MG PO WITH MEALS, TAB 10/24/15 Allergies Allergies: Coded Allergies: morphine (Verified Allergy, Intermediate, "I DON'T REMEMBER", 06/30/16) Penicillins (Verified Allergy, Unknown, 06/30/16) prochlorperazine edisylate (Verified Allergy, Unknown, 06/30/16) prochlorperazine maleate (Verified Allergy, Unknown, 06/30/16) PMhx/Soc Chronic pain syndrome, hypothyroidism, psychiatric illness, hypertension, hypercholesterolemia History of Surgery: Yes (IVC FILTER, YANDEL. REMOVAL OF AREOLA/NIPPLE, NOT MASTECTOMY ) Hx Neurological Disorder: Yes (bipolar , anxiety) Hx Respiratory Disorders: Yes (PULMONARY EMBOLI) Hx Cardiac Disorders: Yes (DVT LEFT LEG) Hx Psychiatric Problems: Yes (bipolar) Hx Miscellaneous Medical Probl: Yes (PE,BILATERAL MASTECTOMIES,PTSD,CHRONIC PAIN,OBESITY) Hx Alcohol Use: No Hx Substance Use: No Hx Tobacco Use: Yes (PT. ON NICOTINE PATCH DAILY) Smoking Status: Current every day smoker FmHx Family History: No diabetes Physical Exam Vitals Vital Signs Date Time Temp Pulse Resp B/P Pulse Ox O2 Delivery O2 Flow Rate FiO2 07/17/16 22:36 76 113/73 07/17/16 19:15 98.5 90 18 146/84 98 Room Air 07/17/16 19:15 98.5 90 18 146/84 98 Physical Exam GENERAL: Well-developed, well-nourished, well-hydrated, in no apparent distress , looks nontoxic in appearance HEENT: Moist mucous membranes, pink conjunctiva, no cervical spine tenderness or step-off deformities, no goiter, no jaundice or icterus, extraocular movements intact without pain. No submandibular induration, and no pharyngeal erythema NEURO: Alert and oriented 3, cranial nerves II through XII intact bilaterally, pupils equal round reactive to light, no focal deficits or facial asymmetry, sensation intact distally Strength 5/5 in upper and lower extremities bilaterally CARDIAC: Regular rate and rhythm, no murmurs rubs or gallops LUNGS: Clear bilaterally no wheezing crackles or stridor ABDOMEN: Soft nontender, no guarding, no rigidity, no rebound, no psoas sign no obturator sign. Normoactive bowel sounds SKIN: Warm and dry to touch, no abrasions, contusions, or hematomas, no lacerations, no ecchymosis, no target lesions, and without ulcers EXTREMITIES: No clubbing cyanosis or edema, calves are bilaterally symmetrical, no Homans sign, no popliteal cord sign. Distal pulses equal and bilateral PSYCH: Normal affect without agitation or irritability Result Diagram: 07/17/16184907/17/161849 Results 24 hrs Laboratory Tests Test 07/17/16 18:50 White Blood Count 11.310^3/ul Red Blood Count 4.0210^6/ul Hemoglobin 13.2g/dl Hematocrit 39.2% Mean Corpuscular Volume 97.5fl Mean Corpuscular Hemoglobin 32.8pg Mean Corpuscular Hemoglobin Concent 33.7g/dl Red Cell Distribution Width 13.4% Platelet Count 04091^3/UL Mean Platelet Volume 10.1fl Neutrophils % 71.1% Lymphocytes % 18.0% Monocytes % 9.0% Eosinophils % 1.0% Basophils % 0.4% Nucleated Red Blood Cells % 0.0/100WBC Neutrophils # 8.010^3/ul Lymphocytes # 2.010^3/ul Monocytes # 1.010^3/ul Eosinophils # 0.110^3/ul Basophils # 0.010^3/ul Nucleated Red Blood Cells # 0.010^3/ul Activated Partial Thromboplast Time 29.6Sec Urine Color LT. RED Urine Clarity SLIGHTLY CLOUDY Urine pH 8.0 Urine Specific [place] 1.010 Urine Ketones NEGATIVE Urine Nitrite NEGATIVE Urine Bilirubin NEGATIVE Urine Urobilinogen 0.2 E.U./dL Urine Leukocyte Esterase 2+ Urine Microscopic RBC >200/HPF Urine Microscopic WBC 10-25/HPF Urine Squamous Epithelial Cells FEW Urine Bacteria FEW Urine Hemoglobin 3+ Urine Glucose NEGATIVE% Urine Total Protein 2+ Sodium Level 140mmol/L Potassium Level 3.7mmol/L Chloride Level 105mmol/L Carbon Dioxide Level 28mmol/L Anion Gap 11 Blood Urea Nitrogen 14mg/dl Creatinine 0.68mg/dl Glucose Level 96mg/dl Calcium Level 9.7mg/dl Total Bilirubin 0.1mg/dl Direct Bilirubin 0.00mg/dl Indirect Bilirubin 0.1mg/dl Aspartate Amino Transf (AST/SGOT) 14IU/L Alanine Aminotransferase (ALT/SGPT) 20IU/L Alkaline Phosphatase 115IU/L Total Protein 6.7g/dl Albumin 3.7g/dl Globulin 3.00g/dl Albumin/Globulin Ratio 1.23 Lipase 17U/L Current Medications Medications (Trade) Dose Ordered Sig/Daniel Route PRN Reason Start Time Stop Time Status Last Admin Dose Admin Sodium Chloride 1,000 ml @ 1,000 mls/hr Q1H STAT IV 07/17/16 18:37 07/17/16 19:36 DC 07/17/16 19:05 Levofloxacin/ Dextrose (Levaquin 750 Mg/ D5W 150 ml (Pmx)) 150 ml @ 100 mls/hr ONCE ONCE IVPB 07/17/16 21:00 07/17/16 22:29 DC 07/17/16 20:44 Procedures/MDM IV line was established patient was placed on cardiac tech rhythm strip revealed a sinus rhythm at about 80 bpm with upright P and T waves. Patient was afebrile. CBC and electrolytes were unremarkable, liver function tests were normal. Urinalysis was positive for infection and hematuria. I treated the patient here with 1 L normal saline intravenously and levofloxacin [address] scan of the abdomen and pelvis was performed, given the patient's symptoms. There was no acute inflammatory or infectious pathology noted, vascular structures were unremarkable. Please refer radiologist's dictation for full report. There are other causes of hematuria as I explained to the patient and we will initially manage this as a hemorrhagic urinary tract infection, but if symptoms continue she may require cystoscopy, although this can be managed as an outpatient with her PMD and a urology consultation. Differential diagnoses considered, included but not limited to acute coronary syndrome, pulmonary embolism, aortic dissection, abdominal aortic aneurysm, sepsis, stroke, meningitis, encephalitis, pneumonia, appendicitis, cholecystitis , bowel obstruction, pyelonephritis, nephrolithiasis, cystitis, as well as metabolic, hematologic, and electrolyte abnormalities. As well as abscess, cellulitis, fractures, and dislocations. Patient feels much better at this time, and vital signs are normal, symptoms have improved. I did give strict instructions to return to the ED if symptoms continue or worsen, patient will otherwise follow-up with primary care physician. Patient understood instructions and agreed to plan. Departure Diagnosis: Primary Impression: Hematuria Condition: Good Patient Instructions: Hematuria, Bladder Infection, Female (Adult) STEVE JONES MD July 18, 2016 01:12
== END 2016-07-17 22:39 | disposition home or self-care (01) ==
LOC: E/R 17:59
DX: R31.9 Hematuria, unspecified (principal); E03.9 Hypothyroidism, unspecified; I10 Essential (primary) hypertension; F17.210 Nicotine dependence, cigarettes, uncomplicated; E66.9 Obesity, unspecified; Z68.32 Body mass index [BMI] 32.0-32.9, adult
CPT/HCPCS: 36415; 74176; 80053; 81001; 83690; 85025; 85730; 87086; 96374; 99285; J1956; J7030; 81003

== ENCOUNTER 2016-07-29 15:35 | Emergency (ER) | payer OTHER ==
[~2016-07-29] VITALS: Ht 162.6 cm; Wt 80.0 kg
[~2016-07-29 15:35] MED LIST changes: +IBUP-1542 PO; +LEVO500T72 PO
[2016-07-29 15:41] VITALS: Ht 162.6 cm; Wt 80.0 kg
[2016-07-29] MEDS ORDERED: SOD CHLORIDE 0.9% 1,000 ML IV STA (15:47)
[2016-07-29] MEDS ORDERED: NALOXONE (0.4 MG/ML) INJ IV STA (15:47)
[2016-07-29] MEDS ORDERED: ONDANSETRON 4 MG INJ IV STA (15:47)
[2016-07-29] MEDS ORDERED: ATOR40TA68 PO (16:55)
[2016-07-29] MEDS ORDERED: BACL20TA PO (16:56)
[2016-07-29] MEDS ORDERED: FLUT1AER INHALATION (16:56)
[2016-07-29] MEDS ORDERED: DIVA500T15 PO (16:58)
[2016-07-29] MEDS ORDERED: DULO60CA59 PO (16:58)
[2016-07-29] MEDS ORDERED: GABA300C16 PO (16:58)
[2016-07-29] MEDS ORDERED: LEVO150T67 PO (16:59)
[2016-07-29] MEDS ORDERED: LEVO500T10 PO (16:59)
[2016-07-29] MEDS ORDERED: METH10TA2 PO (17:00)
[2016-07-29] MEDS ORDERED: MIRT30TA5 PO (17:01)
[2016-07-29] MEDS ORDERED: OXYB5TAB7 PO (17:01)
[2016-07-29] MEDS ORDERED: HYDR-902 PO (17:02)
[2016-07-29] MEDS ORDERED: QUET50TA22 PO (17:03)
[2016-07-29] MEDS ORDERED: SULF1TAB31 PO (17:07)
[2016-07-29] MEDS ORDERED: RIVA20TA PO (17:10)
[2016-07-29] MEDS ORDERED: NIT4 SL (17:11)
[2016-07-29] MEDS ORDERED: TEM15CR5 TOP (17:11)
[2016-07-29] MEDS ORDERED: DOCU250C58 PO (17:12)
--- NOTE | 2016-07-29 17:25 | ERD ---
ER Documentation Chief Complaint Date/Time DATE: 07/29/16 TIME: 17:22 Chief Complaint BIB RA FROM [facility]OC HPI This is a 61-year-old female who presents to the emergency room from [facility] for altered mental status. When I evaluated this patient she was unarousable however she was not hypoxic, she did have pinpoint pupils. I did look at her previous medical records and it appears that she was seen in the emergency room for opiate overdose. The patient is on methadone, and patient is hemodynamically stable at this time ROS All systems reviewed and are negative except as per history of present illness. Medications Home Meds Reported Medications Docusate Sodium* (Colace*) 250 Mg Capsule, 250 MG PO BID, #60 CAP 07/29/16 Nitroglycerin* (Nitrostat*) 0.4 Mg Tab.subl, 0.4 MG SL Q5MIN Y for CHEST PAIN, BOTTLE 07/29/16 Clobetasol Propionate* (Temovate*) 0.05%-15gm Cream..g., 1 APPLIC TOP BID, #1 TUB 07/29/16 Rivaroxaban* (Xarelto*) 20 Mg Tablet, 20 MG PO DAILY WITH MEALS, TAB 07/29/16 Sulfamethoxazole/Trimethoprim* (Bactrim Ds* Tablet) 1 Each Tablet, 1 TAB PO BID , TAB TAKE 1TAB BID X 5 DAYS,800-160MG START DATE 07/28/16 07/29/16 Quetiapine Fumarate* (Quetiapine Fumarate*) 50 Mg Tablet, 50 MG PO TID, TAB 07/29/16 Hydrocodone/Acetaminophen ([place] 10-325 Tablet) 1 Each Tablet, 1 EACH PO Q6H, TAB 07/29/16 Oxybutynin Chloride* (Ditropan*) 5 Mg Tab, 5 MG PO DAILY, TAB 07/29/16 Mirtazapine* (Mirtazapine*) 30 Mg Tablet, 30 MG PO HS, TAB 07/29/16 Methadone Hcl* (Methadone*) 10 Mg Tab, 20 MG PO BID, TAB 07/29/16 Levothyroxine Sodium* (Levothyroxine Sodium*) 150 Mcg Tablet, 150 MCG PO BEFORE BREAKFAST, #30 TAB 07/29/16 Levofloxacin* (Levofloxacin*) 500 Mg Tablet, 500 MG PO DAILY, TAB 07/29/16 Gabapentin* (Gabapentin*) 300 Mg Capsule, 300 MG PO TID, #90 CAP 07/29/16 Duloxetine Hcl* (Duloxetine Hcl*) 60 Mg Capsule.dr, 60 MG PO DAILY, #30 CAP 07/29/16 Divalproex Sodium* (Divalproex ER*) 500 Mg Tab.er.24h, 500 MG PO TID, #30 TAB.SA 07/29/16 Fluticasone-Vilanterol (Breo Ellipta Inhaler) 100-25 Mcg/Actuation Aer.pow.ba, 1 PUFF INHALATION DAILY, #1 INHALER 07/29/16 Baclofen* (Baclofen*) 20 Mg Tablet, 20 MG PO Q6H, TAB 07/29/16 Atorvastatin* (Atorvastatin*) 40 Mg Tablet, 40 MG PO DAILY, #30 TAB 07/29/16 Discontinued Reported Medications Levothyroxine Sodium* (Levothyroxine Sodium*) 137 Mcg Tablet, 137 MCG PO BEFORE BREAKFAST, #30 TAB 06/30/16 Lactulose* (Lactulose*) 10 Gm/15 Ml Solution, 2 TAB.SL PO QHS, ML 06/30/16 Fluticasone-Vilanterol (Breo Ellipta Inhaler) 100-25 Mcg/Actuation Aer.pow.ba, 1 PUFF INHALATION DAILY, #1 INHALER 06/30/16 Atorvastatin* (Atorvastatin*) 40 Mg Tablet, 40 MG PO DAILY, #30 TAB 06/30/16 Mupirocin Calcium* (Mupirocin*) 2% - 15 Gram Cream..g., 1 APPLIC TOP BID, #1 TUB 06/30/16 Divalproex Sodium* (Divalproex Sodium*) 250 Mg Tablet.dr, 250 MG PO TID, #90 TAB 03/03/16 Oxybutynin Chloride* (Ditropan*) 5 Mg Tab, 5 MG PO DAILY, TAB 03/03/16 Nitroglycerin* (Nitrostat*) 0.4 Mg Tab.subl, 0.4 MG SL Q5MIN Y for CHEST PAIN, BOTTLE 03/03/16 Clobetasol Propionate* (Clobetasol Propionate*) 15 Gm Oint, 1 APPLIC TOP BID, # 1 TUB 03/03/16 Docusate Sodium* (Colace*) 250 Mg Capsule, 250 MG PO BID, #60 CAP 03/03/16 Rivaroxaban* (Xarelto*) 20 Mg Tablet, 20 MG PO WITH MEALS, TAB 10/24/15 Discontinued Scripts Ibuprofen* (Ibuprofen*) 600 Mg Tablet, 600 MG PO Q8 for PAIN AND/OR INFLAMMATION , #30 TAB Prov:STEVE JONES MD 07/17/16 Levofloxacin* (Levaquin*) 500 Mg Tablet, 500 MG PO DAILY for 5 Days, TAB Prov:STEVE JONES MD 07/17/16 Quetiapine Fumarate* (Quetiapine Fumarate*) 25 Mg Tablet, 25 MG NGT BID, #60 TAB 2 Refills Prov:PETER FUNEZ S. 07/03/16 Hydromorphone Hcl* (Dilaudid*) 2 Mg Tablet, 2 MG PO Q6H Y for PAIN LEVEL 4-7, # 30 TAB Prov:PETER FUNEZ S. 07/03/16 Allergies Allergies: Coded Allergies: morphine (Verified Allergy, Intermediate, "I DON'T REMEMBER", 07/29/16) Penicillins (Verified Allergy, Unknown, 07/29/16) prochlorperazine edisylate (Verified Allergy, Unknown, 07/29/16) prochlorperazine maleate (Verified Allergy, Unknown, 07/29/16) PMhx/Soc History of Surgery: Yes (IVC FILTER, YANDEL. REMOVAL OF AREOLA/NIPPLE, NOT MASTECTOMY ) Hx Neurological Disorder: Yes (bipolar , anxiety) Hx Respiratory Disorders: Yes (PULMONARY EMBOLI) Hx Cardiac Disorders: Yes (DVT LEFT LEG) Hx Psychiatric Problems: Yes (bipolar) Hx Miscellaneous Medical Probl: Yes (PE,BILATERAL MASTECTOMIES,PTSD,CHRONIC PAIN,OBESITY) Hx Alcohol Use: No Hx Substance Use: No Hx Tobacco Use: Yes (PT. ON NICOTINE PATCH DAILY) Physical Exam Vitals Vital Signs Date Time Temp Pulse Resp B/P Pulse Ox O2 Delivery O2 Flow Rate FiO2 07/29/16 15:41 98.3 84 16 145/88 96 Physical Exam Const: Patient is hard to arouse, Head: Atraumatic Eyes: Pinpoint pupils, normal Conjunctiva ENT: Dry mucous membranes, normal External Ears, Nose and Mouth. Neck: Full range of motion..~ No meningismus. Resp: Clear to auscultation bilaterally Cardio: Regular rate and rhythm, no murmurs Abd: Soft, non tender, non distended. Normal bowel sounds Skin: No petechiae or rashes Back: No midline or flank tenderness Ext: No cyanosis, or edema Neur: Awake and alert Psych: Normal Mood and Affect Results 24 hrs Current Medications Medications (Trade) Dose Ordered Sig/Daniel Route PRN Reason Start Time Stop Time Status Last Admin Dose Admin Sodium Chloride (NS) 1,000 ml @ 1,000 mls/hr Q1H STAT IV 07/29/16 15:47 07/29/16 16:46 DC Ondansetron HCl (Zofran Inj) 4 mg ONCE STAT IV 07/29/16 15:47 07/29/16 15:48 DC Naloxone HCl (Narcan) 0.4 mg ONCE STAT IV 07/29/16 15:47 07/29/16 15:48 DC Procedures/MDM This 61-year-old female presents to the emergency room after an opiate overdose. I gave the patient 0.1 mg of Narcan. The patient was given 1 L of fluids and 4 mg of Zofran as well. The patient was observed for 90 minutes. She is alert oriented to person place and time he does state that she took one [place] which was prescribed to her by a physician. I advised this patient is that she needs to discontinue the use of all opiate medications and revisit with her primary care physician before taking any opiate medications including methadone as this is her second visit this month for similar symptoms. The patient verbalized understanding and the patient will be discharged at this time. Smoking Cessation Therapy: Pt. was lectured for greater than 3 minutes on the health risks of continued smoking and the benefits of cessation. Departure Diagnosis: Primary Impression: Opiate overdose Additional Impressions: Tobacco abuse Tobacco abuse counseling Condition: JESSICA Barrow DO July 29, 2016 17:25
[2016-07-29 18:38] VITALS: BP 148/86; PULSE 96; RESP 18
== END 2016-07-29 19:18 | disposition home or self-care (01) ==
LOC: E/R 15:35
DX: T50.7X1A Poisoning by analeptics and opioid receptor antagonists, accidental (unintentional), initial encounter (principal); F17.210 Nicotine dependence, cigarettes, uncomplicated; E66.9 Obesity, unspecified; Z71.6 Tobacco abuse counseling; Z68.30 Body mass index [BMI] 30.0-30.9, adult
CPT/HCPCS: 96374; 96375; 99284; J2310; J2405; J7030

== ENCOUNTER 2016-07-31 05:18 | Emergency (ER) | payer OTHER ==
[~2016-07-31] VITALS: Ht 154.9 cm; Wt 100.0 kg
[~2016-07-31 05:18] MED LIST changes: +BACL20TA PO; -CLOB15OI15 TOP; -DIVA250T4 PO; +DIVA500T15 PO; +DULO60CA59 PO; +GABA300C16 PO; +HYDR-902 PO; -HYDR2TAB15 PO; -IBUP-1542 PO; -LACT10SO5 PO; -LEVO137T3 PO; +LEVO150T67 PO; +LEVO500T10 PO; -LEVO500T72 PO; +METH10TA2 PO; +MIRT30TA5 PO; -MUPI15CR9 TOP; -QUET25TA33 NGT; +QUET50TA22 PO; +SULF1TAB31 PO; +TEM15CR5 TOP
[2016-07-31 05:29] VITALS: Ht 154.9 cm; Wt 100.0 kg
[2016-07-31] MEDS ORDERED: ACETAMINOPHEN 500 MG TAB PO STA (05:41)
[2016-07-31] MEDS ORDERED: OLANZAPINE 5 MG TAB PO ONE (06:30)
[2016-07-31 06:55] LABS: ADD SCAN DIFF NO
[2016-07-31 07:07] LABS: BASOPHILS % 0.4 % (0.0-2.0); EOSINOPHILS % 0.1 % (0.0-7.0); HEMATOCRIT 45.7 % (37.0-47.0); LYMPHOCYTES # 1.1 10^3/ul (0.8-2.9); LYMPHOCYTES % 16.6 % (15.0-51.0); MEAN CORPUSCULAR HEMOGLOBIN 31.6 pg (29.0-33.0); MEAN CORPUSCULAR HGB CONC 32.8 g/dl (32.0-37.0); MEAN CORPUSCULAR VOLUME 96.4 fl (82.0-101.0); MEAN PLATELET VOLUME 10.9 fl (7.4-10.4); MONOCYTE # 0.4 10^3/ul (0.3-0.9); MONOCYTES % 6.2 % (0.0-11.0); NEUTROPHIL # 5.1 10^3/ul (1.6-7.5); PLATELET COUNT 376 10^3/UL (140-415); RED BLOOD COUNT 4.74 10^6/ul (4.20-5.40); RED CELL DISTRIBUTION WIDTH 13.2 % (11.5-14.5); WHITE BLOOD COUNT 6.8 10^3/ul (4.8-10.8)
--- NOTE | 2016-07-31 07:35 | RADRPT ---
PROCEDURE: CHEST - 1 VIEW CLINICAL INDICATION: 61-year-old female with chest/abdominal pain. TECHNIQUE: A single frontal AP upright portable view of the chest was performed. The images were reviewed on a PACS workstation. COMPARISON: Chest x-ray October 24, 2015; CTA chest October 24, 2015. FINDINGS: The cardiomediastinal silhouette is within normal limits. There is a shallow inspiration. There is mild bibasilar subsegmental atelectasis. There is no evidence for an infiltrate. There is no evid ence for congestive heart failure. There is no evidence for pneumothorax. Surgical clips are seen wi thin the right axillary region from prior lymph node dissection. Multiple surgical clips are seen o verlying the soft tissues of the breast bilaterally from prior breast reconstruction. The osseous s tructures are intact. IMPRESSION: 1. Shallow inspiration with bibasilar subsegmental atelectasis. 2. Right axillary lymph node dissection with multiple surgical clips from bilateral breast reconstr uction. .Emanuel Oleary MD, MD Date Time Electronically viewed and signed by .Emanuel Oleary MD, on 07/31/2016 07:34 .M/
[2016-07-31 08:25] LABS: ALBUMIN 3.9 g/dl (3.3-4.9)
[2016-07-31 08:27] LABS: BILIRUBIN,INDIRECT 0.3 mg/dl (0-1.1); BILIRUBIN,TOTAL 0.3 mg/dl (0.2-1.3); CREATININE 0.65 mg/dl (0.44-1.00)
[2016-07-31 08:28] LABS: ALBUMIN/GLOBULIN RATIO 1.14; CALCIUM 9.7 mg/dl (8.4-10.2); TOTAL PROTEIN 7.3 g/dl (6.1-8.1)
--- NOTE | 2016-07-31 08:36 | ERD ---
ER Documentation Chief Complaint Date/Time DATE: 07/31/16 TIME: 06 Chief Complaint AP, nausea, constipation HPI 61-year-old female presents to the emergency department complaining of abdominal pain. Patient is a very difficult historian with what appears to be a tangential thought process and possible psychosis. She provides little insight but tells me that she is having a diffuse abdominal pain associated with "small vomiting" and a cough. She denies fevers or chills. She denies blood in her emesis. She states that she has had "2 large bowel movements." She denies urinary symptoms. ROS All systems reviewed and are negative except as per history of present illness. Medications Home Meds Reported Medications Docusate Sodium* (Colace*) 250 Mg Capsule, 250 MG PO BID, #60 CAP 07/29/16 Nitroglycerin* (Nitrostat*) 0.4 Mg Tab.subl, 0.4 MG SL Q5MIN Y for CHEST PAIN, BOTTLE 07/29/16 Clobetasol Propionate* (Temovate*) 0.05%-15gm Cream..g., 1 APPLIC TOP BID, #1 TUB 07/29/16 Rivaroxaban* (Xarelto*) 20 Mg Tablet, 20 MG PO DAILY WITH MEALS, TAB 07/29/16 Sulfamethoxazole/Trimethoprim* (Bactrim Ds* Tablet) 1 Each Tablet, 1 TAB PO BID , TAB TAKE 1TAB BID X 5 DAYS,800-160MG START DATE 07/28/16 07/29/16 Quetiapine Fumarate* (Quetiapine Fumarate*) 50 Mg Tablet, 50 MG PO TID, TAB 07/29/16 Hydrocodone/Acetaminophen ([place] 10-325 Tablet) 1 Each Tablet, 1 EACH PO Q6H, TAB 07/29/16 Oxybutynin Chloride* (Ditropan*) 5 Mg Tab, 5 MG PO DAILY, TAB 07/29/16 Mirtazapine* (Mirtazapine*) 30 Mg Tablet, 30 MG PO HS, TAB 07/29/16 Methadone Hcl* (Methadone*) 10 Mg Tab, 20 MG PO BID, TAB 07/29/16 Levothyroxine Sodium* (Levothyroxine Sodium*) 150 Mcg Tablet, 150 MCG PO BEFORE BREAKFAST, #30 TAB 07/29/16 Levofloxacin* (Levofloxacin*) 500 Mg Tablet, 500 MG PO DAILY, TAB 07/29/16 Gabapentin* (Gabapentin*) 300 Mg Capsule, 300 MG PO TID, #90 CAP 07/29/16 Duloxetine Hcl* (Duloxetine Hcl*) 60 Mg Capsule.dr, 60 MG PO DAILY, #30 CAP 07/29/16 Divalproex Sodium* (Divalproex ER*) 500 Mg Tab.er.24h, 500 MG PO TID, #30 TAB.SA 07/29/16 Fluticasone-Vilanterol (Breo Ellipta Inhaler) 100-25 Mcg/Actuation Aer.pow.ba, 1 PUFF INHALATION DAILY, #1 INHALER 07/29/16 Baclofen* (Baclofen*) 20 Mg Tablet, 20 MG PO Q6H, TAB 07/29/16 Atorvastatin* (Atorvastatin*) 40 Mg Tablet, 40 MG PO DAILY, #30 TAB 07/29/16 Discontinued Reported Medications Levothyroxine Sodium* (Levothyroxine Sodium*) 137 Mcg Tablet, 137 MCG PO BEFORE BREAKFAST, #30 TAB 06/30/16 Lactulose* (Lactulose*) 10 Gm/15 Ml Solution, 2 TAB.SL PO QHS, ML 06/30/16 Fluticasone-Vilanterol (Breo Ellipta Inhaler) 100-25 Mcg/Actuation Aer.pow.ba, 1 PUFF INHALATION DAILY, #1 INHALER 06/30/16 Atorvastatin* (Atorvastatin*) 40 Mg Tablet, 40 MG PO DAILY, #30 TAB 06/30/16 Mupirocin Calcium* (Mupirocin*) 2% - 15 Gram Cream..g., 1 APPLIC TOP BID, #1 TUB 06/30/16 Divalproex Sodium* (Divalproex Sodium*) 250 Mg Tablet.dr, 250 MG PO TID, #90 TAB 03/03/16 Oxybutynin Chloride* (Ditropan*) 5 Mg Tab, 5 MG PO DAILY, TAB 03/03/16 Nitroglycerin* (Nitrostat*) 0.4 Mg Tab.subl, 0.4 MG SL Q5MIN Y for CHEST PAIN, BOTTLE 03/03/16 Clobetasol Propionate* (Clobetasol Propionate*) 15 Gm Oint, 1 APPLIC TOP BID, # 1 TUB 03/03/16 Docusate Sodium* (Colace*) 250 Mg Capsule, 250 MG PO BID, #60 CAP 03/03/16 Rivaroxaban* (Xarelto*) 20 Mg Tablet, 20 MG PO WITH MEALS, TAB 10/24/15 Discontinued Scripts Ibuprofen* (Ibuprofen*) 600 Mg Tablet, 600 MG PO Q8 for PAIN AND/OR INFLAMMATION , #30 TAB Prov:STEVE JONES MD 07/17/16 Levofloxacin* (Levaquin*) 500 Mg Tablet, 500 MG PO DAILY for 5 Days, TAB Prov:STEVE JONES MD 07/17/16 Quetiapine Fumarate* (Quetiapine Fumarate*) 25 Mg Tablet, 25 MG NGT BID, #60 TAB 2 Refills Prov:PETER FUNEZ S. 07/03/16 Hydromorphone Hcl* (Dilaudid*) 2 Mg Tablet, 2 MG PO Q6H Y for PAIN LEVEL 4-7, # 30 TAB Prov:PETER FUNEZ S. 07/03/16 Allergies Allergies: Coded Allergies: morphine (Verified Allergy, Intermediate, "I DON'T REMEMBER", 07/29/16) Penicillins (Verified Allergy, Unknown, 07/29/16) prochlorperazine edisylate (Verified Allergy, Unknown, 07/29/16) prochlorperazine maleate (Verified Allergy, Unknown, 07/29/16) PMhx/Soc History of Surgery: Yes (IVC FILTER, YANDEL. REMOVAL OF AREOLA/NIPPLE, NOT MASTECTOMY ) Hx Neurological Disorder: Yes (bipolar , anxiety) Hx Respiratory Disorders: Yes (PULMONARY EMBOLI) Hx Cardiac Disorders: Yes (DVT LEFT LEG) Hx Psychiatric Problems: Yes (bipolar) Hx Miscellaneous Medical Probl: Yes (PE,BILATERAL MASTECTOMIES,PTSD,CHRONIC PAIN,OBESITY) Hx Alcohol Use: No Hx Substance Use: No Hx Tobacco Use: Yes (PT. ON NICOTINE PATCH DAILY) Smoking Status: Former smoker FmHx Noncontributory for chief complaint Physical Exam Vitals Vital Signs Date Time Temp Pulse Resp B/P Pulse Ox O2 Delivery O2 Flow Rate FiO2 07/31/16 06:44 73 14 163/99 95 Room Air 07/31/16 05:29 98.4 82 16 165/116 98 Physical Exam GENERAL: Patient is a elderly appearing, nontoxic female HEENT: Pupils equal, round, and reactive to light. EOMI. There is no scleral icterus. NECK: C-spine is soft and supple, there is no meningismus. There is no cervical lymphadenopathy. LUNGS: Clear to auscultation bilaterally. There are no rales, wheezes or rhonchi. HEART: Regular rate and rhythm, no murmurs, clicks, rubs or gallops. ABDOMEN: Soft, non-tender, non-distended. There are bowel sounds in all four quadrants. No rebound or guarding. EXTREMITIES: There is no peripheral cyanosis or edema. No focal swelling or erythema. NEURO: The patient moves all four extremities with 5/5 strength. Cranial nerves II - XII are intact. Normal gait. Alert and answering questions but with a tangential thought process and limited insight SKIN: There is no apparent rash or petechiae. HEME/LYMPHATIC: There is no evidence of excessive bruising or lymphedema. PSYCHIATRIC: The patient does not appear anxious or depressed. She is intermittently agitated and seems to have a somewhat confused thought process with evidence of what appears to be an underlying psychosis. Result Diagram: 07/31/16 0615 07/31/16 0800 Results 24 hrs Laboratory Tests Test 07/31/16 06:15 07/31/16 08:00 White Blood Count 6.810^3/ul Red Blood Count 4.7410^6/ul Hemoglobin 15.0g/dl Hematocrit 45.7% Mean Corpuscular Volume 96.4fl Mean Corpuscular Hemoglobin 31.6pg Mean Corpuscular Hemoglobin Concent 32.8g/dl Red Cell Distribution Width 13.2% Platelet Count 70932^3/UL Mean Platelet Volume 10.9fl Neutrophils % 76.0% Lymphocytes % 16.6% Monocytes % 6.2% Eosinophils % 0.1% Basophils % 0.4% Nucleated Red Blood Cells % 0.0/100WBC Neutrophils # 5.110^3/ul Lymphocytes # 1.110^3/ul Monocytes # 0.410^3/ul Eosinophils # 0.010^3/ul Basophils # 0.010^3/ul Nucleated Red Blood Cells # 0.010^3/ul Sodium Level 138mmol/L Potassium Level 4.0mmol/L Chloride Level 98mmol/L Carbon Dioxide Level 24mmol/L Anion Gap 20 Blood Urea Nitrogen 20mg/dl Creatinine 0.65mg/dl Glucose Level 114mg/dl Calcium Level 9.7mg/dl Total Bilirubin 0.3mg/dl Direct Bilirubin 0.00mg/dl Indirect Bilirubin 0.3mg/dl Aspartate Amino Transf (AST/SGOT) 21IU/L Alanine Aminotransferase (ALT/SGPT) 19IU/L Alkaline Phosphatase 107IU/L Total Protein 7.3g/dl Albumin 3.9g/dl Globulin 3.40g/dl Albumin/Globulin Ratio 1.14 Lipase 38U/L Current Medications Medications (Trade) Dose Ordered Sig/Daniel Route PRN Reason Start Time Stop Time Status Last Admin Dose Admin Acetaminophen (Tylenol Tab) 1,000 mg ONCE STAT PO 07/31/16 05:41 07/31/16 05:42 DC 07/31/16 05:46 Olanzapine (Zyprexa) 5 mg ONCE ONCE PO 07/31/16 06:30 07/31/16 06:31 DC 07/31/16 07:05 Procedures/MDM Patient was taken to a room, seen and evaluated. Comfort measures were initiated. Diagnostic tests were ordered and reviewed. 3 LEAD RHYTHM STRIP: Normal sinus rhythm without ectopy RADIOLOGY: reviewed with the radiologist REEVALUATION: Patient was resting comfortably after the Zyprexa. Abdomen remained benign. MEDICAL DECISION MAKIN-year-old female with what appear to be multiple medical comorbid conditions who lives at a care facility presents with a number of nonspecific symptoms. At this time, in regards to her abdominal pain, I see no evidence of high-risk appendicitis, cholecystitis or other high-risk issues. Patient overall appears to be clinically nontoxic with labs that are low risk. She clearly has evidence of an underlying psychiatric and possible substance abuse issue, but does not appear to be a danger to herself or others nor requiring of the current acute psychiatric hospitalization. Patient has a stable outpatient facility and is appropriate for discharge. Departure Diagnosis: Primary Impression: Abdominal pain Condition: Stable Patient Instructions: Abdominal Pain Referrals: ZULMA KRUEGER (PCP) Additional Instructions: See your doctor for follow-up as discussed. Take a copy of your test results, if appropriate, to this follow-up visit. See your doctor or return here if your symptoms do not improve as expected. At any time, please return to the emergency department for any change or worsening in her symptoms. MONICA HOLLAND July 31, 2016 08:36
[2016-07-31 12:25] VITALS: BP 154/84; PULSE 84; RESP 16
== END 2016-07-31 12:35 | disposition home or self-care (01) ==
LOC: E/R 05:18
DX: R10.84 Generalized abdominal pain (principal); E66.9 Obesity, unspecified; Z68.41 Body mass index [BMI] 40.0-44.9, adult; Z79.01 Long term (current) use of anticoagulants; Z87.891 Personal history of nicotine dependence
CPT/HCPCS: 36415; 71010; 80053; 83690; 85025

== ENCOUNTER 2017-09-03 17:11 | Observation (INO) | END 2017-09-06 14:52 | disposition home or self-care (01) ==

== ENCOUNTER 2017-10-23 11:13 | Emergency (ER) | END 2017-10-23 15:26 | disposition home or self-care (01) ==

== ENCOUNTER 2018-09-22 05:16 | Emergency (ER) | payer OTHER ==
[~2018-09-22] VITALS: Ht 165.1 cm; Wt 79.5 kg
[~2018-09-22 05:16] MED LIST changes: -BACL20TA PO; +CLOB15OI15 TOP; +DIVA-16 PO; -DIVA500T15 PO; -HYDR-902 PO; +KEN25O TOP; +LEVO137T3 PO; -LEVO150T67 PO; -LEVO500T10 PO; -METH10TA2 PO; -NIT4 SL; +PANT40TA4 PO; +QUET100T PO; -QUET50TA22 PO; -RIVA20TA PO; +RIVA20TA5 PO; -SULF1TAB31 PO; -TEM15CR5 TOP; +TRIA15CR55 TOP; +[UNRECOGNIZED DRUG - CODE] TOP; +[UNRECOGNIZED DRUG - CODE] TP
[2018-09-22] MEDS ORDERED: LORAZEPAM 2 MG INJ IM ONE ×2 (05:30→08:00)
[2018-09-22] MEDS ORDERED: DIPHENHYDRAMINE 50 MG INJ IM ONE (05:30)
[2018-09-22] MEDS ORDERED: HALOPERIDOL 5 MG INJ IM ONE ×2 (05:30)
[2018-09-22 05:32] VITALS: BP 181/101; PULSE 88; RESP 22; Ht 165.1 cm; Wt 79.5 kg
--- NOTE | 2018-09-22 06:26 | ERD ---
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 The patient reports having multiple stressors in her life including chronic pruritus and issues with her significant other. She woke up this morning feeling very anxious with palpitations, lightheadedness and hyperventilation. She does endorse feeling nauseated this morning with an episode of nonbilious nonbloody vomiting. She denies any chest pain or chest tightness or pleuritic pain. She denies any diaphoresis. The patient was screaming in the room, demanding that she be given something to help her calm down. The patient endorses having a prescription for Klonopin at home, but she reports that they recently decreased her dose, and she feels that it is not enough. The patient does not endorse suicidal or homicidal ideations. She does not endorse auditory or visual hallucinations. The patient denies feeling sick recently. The patient denies fever or chills. The patient has had no headache or vision changes. The patient does not endorse neck or back pain. The patient denies lightheadedness or dizziness. The patient has had no chest pain or trouble breathing. The patient denies abdominal pain. The patient denies changes to bowel movements or urination. The patient has had no focal deficits. The patient has had no weakness or numbness or tingling to the face or extremities. ROS All systems reviewed and are negative except as per history of present illness. Medications Home Meds Reported Medications Triamcinolone Acetonide* (Kenalog*) 0.1%-15GM Cr, 1 APPLIC TOP BID, #1 TUB 10/23/17 Triamcinolone Acetonide* (Kenalog*) 0.025%-15GM Oint, 1 APPLIC TOP BID, #1 EA 10/23/17 Lidocain/Me-Salicyl/Caps/Menth (LIDOPRO OINTMENT) 121 Gm Oint...g., 1 APPLIC TP QID 10/23/17 Clobetasol Propionate* (Clobetasol Propionate*) 15 Gm Oint, 1 APPLIC TOP BID, #1 TUB 10/23/17 Betamethasone Belinda (VALISONE) 1 Applic Cr, 1 APPLIC TOP BID 10/23/17 Pantoprazole* (Pantoprazole*) 40 Mg Tablet.dr, 40 MG PO AC BREAKFAST, TAB 10/23/17 Oxybutynin Chloride* (Ditropan*) 5 Mg Tablet, 5 MG PO DAILY, TAB 10/23/17 Divalproex Sodium* (Divalproex Sodium*) 500 Mg Tablet.dr, 500 MG PO BID, #120 TAB 10/23/17 Fluticasone-Vilanterol (Breo Ellipta Inhaler) 100-25 Mcg/Actuation Aer.pow.ba, 1 PUFF INHALATION DAILY, #1 INHALER 10/23/17 Mirtazapine* (Mirtazapine*) 30 Mg Tablet, 30 MG PO HS, TAB 09/03/17 Docusate Sodium* (Colace*) 250 Mg Capsule, 250 MG PO BID, #60 CAP 09/03/17 Atorvastatin* (Atorvastatin*) 40 Mg Tablet, 40 MG PO QHS, #30 TAB 09/03/17 Rivaroxaban* (Xarelto*) 20 Mg Tablet, 20 MG PO WITH DINNER, TAB 09/03/17 Quetiapine Fumarate* (Seroquel*) 100 Mg Tablet, 100 MG PO TID, #60 TAB 09/03/17 Levothyroxine Sodium* (Levothyroxine Sodium*) 137 Mcg Tablet, 137 MCG PO BEFORE BREAKFAST, #30 TAB 09/03/17 Gabapentin* (Gabapentin*) 300 Mg Capsule, 300 MG PO TID, #90 CAP 09/03/17 Duloxetine Hcl* (Duloxetine Hcl*) 60 Mg Capsule.dr, 60 MG PO DAILY, #30 CAP 09/03/17 Allergies Allergies: Coded Allergies: morphine (Verified Allergy, Intermediate, "I DON'T REMEMBER", 10/23/17) Penicillins (Verified Allergy, Unknown, 10/23/17) prochlorperazine edisylate (Verified Allergy, Unknown, 10/23/17) prochlorperazine maleate (Verified Allergy, Unknown, 10/23/17) PMhx/Soc History of Surgery: Yes (Partial mastectomy) Anesthesia Reaction: No Hx Neurological Disorder: Yes (TIA) Hx Respiratory Disorders: Yes (COPD) Hx Cardiac Disorders: Yes (HTN, HLD, PE, DVT ) Hx Psychiatric Problems: Yes (BIPOLAR, ANXIETY, PTSD) Hx Miscellaneous Medical Probl: Yes (Breast cancer, hypothyroidism) Hx Alcohol Use: No Hx Substance Use: No Hx Tobacco Use: Yes Smoking Status: Current every day smoker FmHx Family History: No diabetes Physical Exam Vitals Vital Signs Date Temp Pulse Resp B/P (MAP) Pulse Ox O2 O2 Flow FiO2 Time Delivery Rate 09/22/18 88 22 181/101 99 05:32 (127) Physical Exam Const: No acute distress Head: Atraumatic Eyes: Normal Conjunctiva ENT: Normal External Ears, Nose and Mouth. Neck: Full range of motion. No meningismus. Resp: Clear to auscultation bilaterally Cardio: Regular rate and rhythm, no murmurs Abd: Soft, non tender, non distended. Normal bowel sounds Skin: No petechiae or rashes Back: No midline or flank tenderness Ext: No cyanosis, or edema Neur: Awake and alert Psych: Anxious, agitated Result Diagram: 09/22/1846 09/22/1846 Results 24 hrs Laboratory Tests Test 09/22/18 05:46 09/22/18 06:48 09/22/18 06:49 White Blood Count 11.9 10^3/ul Red Blood Count 4.49 10^6/ul Hemoglobin 13.7 g/dl Hematocrit 42.7 % Mean Corpuscular Volume 95.1 fl Mean Corpuscular Hemoglobin 30.5 pg Mean Corpuscular 32.1 g/dl Hemoglobin Concent Red Cell Distribution Width 14.1 % Platelet Count 363 10^3/UL Mean Platelet Volume 9.8 fl Immature Granulocytes % 0.300 % Neutrophils % 72.1 % Lymphocytes % 18.4 % Monocytes % 7.9 % Eosinophils % 1.0 % Basophils % 0.3 % Nucleated Red Blood Cells % 0.0 /100WBC Immature Granulocytes # 0.030 10^3/ul Neutrophils # 8.6 10^3/ul Lymphocytes # 2.2 10^3/ul Monocytes # 0.9 10^3/ul Eosinophils # 0.1 10^3/ul Basophils # 0.0 10^3/ul Nucleated Red Blood Cells # 0.0 10^3/ul Sodium Level 145 mmol/L Potassium Level 4.0 mmol/L Chloride Level 106 mmol/L Carbon Dioxide Level 27 mmol/L Anion Gap 12 Blood Urea Nitrogen 25 mg/dl Creatinine 0.66 mg/dl Est Glomerular Filtrat > 60 mL/min Rate mL/min Glucose Level 125 mg/dl Calcium Level 9.4 mg/dl Total Bilirubin 0.3 mg/dl Direct Bilirubin 0.00 mg/dl Indirect Bilirubin 0.3 mg/dl Aspartate Amino 19 IU/L Transf (AST/SGOT) Alanine 11 IU/L Aminotransferase (ALT/SGPT) Alkaline Phosphatase 91 IU/L Total Protein 7.3 g/dl Albumin 4.1 g/dl Globulin 3.20 g/dl Albumin/Globulin Ratio 1.28 Salicylates Level < 1.0 mg/dl Acetaminophen Level < 10.0 ug/ml Ethyl Alcohol Level < 10.0 mg/dl Urine Color STRAW Urine Clarity CLEAR Urine pH 7.0 Urine Specific [place] 1.013 Urine Ketones NEGATIVE mg/dL Urine Nitrite NEGATIVE mg/dL Urine Bilirubin NEGATIVE mg/dL Urine Urobilinogen NEGATIVE mg/dL Urine Leukocyte Esterase NEGATIVE Tanisha/ul Urine Hemoglobin NEGATIVE mg/dL Urine Glucose NEGATIVE mg/dL Urine Total Protein NEGATIVE mg/dl Urine Opiates Screen Negative Urine Barbiturates Negative Urine Amphetamines Screen Negative Urine Benzodiazepines Screen Negative Urine Cocaine Screen Negative Urine Cannabinoids Negative Current Medications Medications Dose Sig/Daniel Start Time Status Last (Trade) Ordered Route PRN Stop Time Admin Dose Reason Admin 50 mg ONCE ONCE 09/22/18 DC 09/22/18 Diphenhydrami IM 05:30 05:25 ne HCl 09/22/18 05:31 (Benadryl) Lorazepam 2 mg ONCE ONCE 09/22/18 DC 09/22/18 (Ativan) IM 05:30 05:25 09/22/18 05:31 Haloperidol 2 mg ONCE ONCE 09/22/18 Cancel (Haldol) IM 05:30 09/22/18 05:31 Haloperidol 5 mg ONCE ONCE 09/22/18 DC 09/22/18 (Haldol) IM 05:30 05:25 09/22/18 05:31 Ondansetron 8 mg ONCE STAT 09/22/18 DC 09/22/18 HCl (Zofran ODT 06:43 07:19 Odt) 09/22/18 06:44 Procedures/[facility] MDM The patient's presentation warrants further investigation. Previous medical records, if available, were reviewed. LABS The patient's laboratory testing was obtained and reviewed. No emergent treatment was required unless described below. CBC: Mild leukocytosis without shift, likely reactive. No E/o systemic infection or severe anemia or thrombocytopenia Chemistry: Mildly elevated BUN with a BUN: Creatinine ratio of greater than 20: 1, concerning for the possibility of dehydration which may be treated orally in outpatient setting. No E/o severe acidosis or alkalosis or renal failure or liver disease or diabetic ketoacidosis Urine: No E/o acute infection or hematuria Tox: No E/o alcohol abuse. No E/o illicit drug use. No E/o salicylate or acetaminophen use. EKG EKG read by me: Rate/Rhythm: Regular rate and rhythm at a rate of 85 beats per minute Intervals: Normal [place]: Normal Impression: No evidence of acute ischemia or arrhythmia TREATMENT/DISPOSITION The patient presents for symptoms most consistent with an anxiety attack. The patient has a history of panic attacks, and she reports that this is how she has felt in the past. She endorses being under a lot of stress with her current living situation and family life. The patient reports feeling very amped up since this morning, and was very agitated in the emergency department. Given the patient's agitation, she was ultimately given Haldol, Ativan and Benadryl with some improvement. The patient was later given a second dose of Ativan. The patient understands the need to follow-up with her psychiatrist for any medication adjustments at home. I do not feel that any prescriptions for anxiety are warranted today. The patient is not suicidal or homicidal. She does not endorse any auditory or visual hallucinations. I have low suspicion for acute psychosis. The patient is not a danger to herself or others. I do not feel the patient requires any further psychiatric assessment. The patient was evaluated fully for other etiologies of her symptoms. The patient has a reassuring physical exam. The patient is not clinically orthostatic. The patient is not dizzy. I have decreased suspicion for vertigo. The patient has no signs of emergent or symptomatic anemia. The patient does not have any emergent electrolyte or metabolic emergencies. I have decrease suspicion for a thyroid disorder. The patient is not toxic appearing. I have decreased suspicion for an infectious etiology of symptoms. The patient reports feeling very anxious with palpitations, but she does not report any chest pain. The patient's EKG is reassuring. I have low suspicion for acute coronary syndrome. I do not see evidence of any emergent cardiac arrhythmia, which includes but is not limited to heart block, Brugada syndrome or WPW. The patient has no heart murmurs or rales. I do not see evidence of CHF. The patient does not endorse any chest or pleuritic pain. The history is negative for bleeding or clotting disorders. The patient has not been involved in any recent prolonged trips or surgeries or hospitalizations. The patient has no calf tenderness or swelling. I have decreased suspicion for PE as the etiology of symptoms. I suspect that the patient's nausea is related to her anxiety, which is what she endorses. The patient does not have any abdominal pain. The patient does not have any evidence of peritonitis. The patient does not have clinical symptoms concerning for mesenteric ischemia or ischemic colitis. The patient does not have right upper quadrant tenderness, and I have low suspicion for gallstones, cholecystitis or biliary colic. The patient does not have any epigastric pain. I have low suspicion for gastritis, PUD or GERD. The patient does not have left upper quadrant tenderness. I have low suspicion for pancreatitis. The patient does not have any right lower quadrant tenderness, or periumbilical tenderness. I have low suspicion for appendicitis. The patient does not have suprapubic tenderness. I have decreased suspicion for cystitis. The patient does not have any left lower quadrant tenderness, and I have low suspicion for diverticulosis or diverticulitis. The patient does not have any flank tenderness. The patient does not have gross hematuria. I have decreased suspicion for nephrolithiasis or renal colic. The patient does not have any palpable pulsatile mass or severe abdominal pain radiating to the back. I have low suspicion for aortic aneurysm, dissection or rupture. The patient was given a dose of Zofran as well to help with her nausea. DISCHARGE Upon reevaluation of the patient, symptoms have improved. No emergent diagnoses were identified. At this time, I feel that the patient stable for discharge. The patient was instructed to follow-up with a primary care physician in 1-3 days. The patient will be given strict precautions with which to return to the emergency department. Prescriptions: Zofran The patient's blood pressure was elevated at greater than 120/80 while in the emergency department. The patient was otherwise stable with no evidence of hypertensive urgency or emergency. The patient does not require admission for blood pressure control. I have discussed with the patient the risks of hypertension. I have instructed the patient to return to the ER for any new or worsening symptoms including chest pain, shortness of breath, headache, blurred vision, confusion, nausea, vomiting or LOC. I have advised the patient to follow up with the primary care physician for outpatient monitoring and treatment for hypertension in 1-3 days. Disclaimer: Inadvertent spelling and grammatical errors are likely due to EHR/dictation software use and do not reflect on the overall quality of patient care. Note that the electronic time recorded on this note does not necessarily reflect the actual time of the patient encounter. Departure Diagnosis: Primary Impression: Anxiety attack Additional Impressions: Leukocytosis Leukocytosis type: unspecified Qualified Codes: D72.829 - Elevated white blood cell count, unspecified Elevated BUN Nausea & vomiting Vomiting type: unspecified Vomiting Intractability: non-intractable Qualified Codes: R11.2 - Nausea with vomiting, unspecified Condition: Stable Patient Instructions: Panic Attack, Nausea and Vomiting-Adult Additional Instructions: Thank you for for coming to [facility] [place] for your care today. Please ask your nurse or provider if you have questions about your care today and do not leave until all your questions have been answered. Please use any medications given as directed and follow-up with your doctor (or the doctor you were referred to) in the next 1-3 days. If you do not have a primary care doctor you may follow up at the [facility] or [facility] (listed below). You may also use motrin and tylenol as needed for fever and/or pain unless instructed otherwise by your provider or nurse. Indications for more urgent follow-up have been discussed, but you may return to the Emergency Department at ANY time for any worrisome or worsening symptoms. If you have abdominal pain, please know that no test or exam you received is perfect and you should follow up within 8 hours for continued pain. If you had any imaging studies today, such as an X-Ray or CT Scan, these studies will be reviewed later by a radiologist. You will be called if there are important findings that were not identified today, so make sure the contact information you provided at registration is correct. If you received any narcotic pain control medicine today, such as Vicodin, Morphine or Dilaudid, your coordination and judgment may be affected for a number of hours. Please do not drive or operate heavy machinery, and you may want someone to assist you at home. If you were given a prescription for narcotic medication, be aware that it is very addictive- use sparingly and only if necessary. PLEASE SEEK FURTHER EVALUATION AND MANAGEMENT AT YOUR DOCTORS OFFICE WITHIN THE NEXT 1-3 DAYS. IT IS YOUR RESPONSIBILITY TO MAKE AN APPOINTMENT FOR FOLOW-UP CARE. IF YOU HAVE A PRIMARY DOCTOR, PLEASE CALL THEIR OFFICE TO SCHEDULE AN APPOINTMENT FOR FOLLOW UP. IF YOU DO NOT HAVE A PRIMARY DOCTOR YOU CAN CALL OUR PHYSICIAN REFERRAL HOTLINE AT IF YOU CAN NOT AFFORD TO SEE A PHYSICIAN YOU CAN CHOSE FROM THE FOLLOWING [facility]: [facility] [address] [facility] [address] [facility] [address] [facility] [address] [facility] [address] [facility]. [facility]. [address] NANCY COBIAN MD Sep 22, 2018 06:26
[2018-09-22] MEDS ORDERED: ONDANSETRON (ODT) 4 MG TAB ODT STA (06:43)
[2018-09-22] MEDS ORDERED: ONDA4TAB8 PO (07:43)
== END 2018-09-22 08:30 | disposition home or self-care (01) ==
LOC: E/R 05:16
DX: F41.9 Anxiety disorder, unspecified (principal); D72.829 Elevated white blood cell count, unspecified; R79.89 Other specified abnormal findings of blood chemistry; R11.2 Nausea with vomiting, unspecified; I10 Essential (primary) hypertension; E03.9 Hypothyroidism, unspecified; J44.9 Chronic obstructive pulmonary disease, unspecified; F17.210 Nicotine dependence, cigarettes, uncomplicated; R40.2142 Coma scale, eyes open, spontaneous, at arrival to emergency department; R40.2252 Coma scale, best verbal response, oriented, at arrival to emergency department; R40.2362 Coma scale, best motor response, obeys commands, at arrival to emergency department; Z85.3 Personal history of malignant neoplasm of breast; Z86.73 Personal history of transient ischemic attack (TIA), and cerebral infarction without residual deficits
CPT/HCPCS: 36415; 80053; 80307; 81003; 85025; 93005; 96372; 99285; P9612; J1200; J1630; J2060